=== PATIENT | female | born 1950 | race Caucasian/White ===

== ENCOUNTER → 2017-01-28 | Outpatient (CLI) | payer BC ==
[~2017-01-28] MED LIST: ACET-1256 PO; BUPR-79 PO; BUPR150T7 PO; BUTACAP7 PO; CALC500C70 PO; CYAN1DRO IM; CYM/60 PO; DIPH25CA65 PO; ELET40TA PO; FERR50TA3 PO; HYDR-4332 PO; LORA-741 PO; LURA40TA PO; LYR50 PO; MULT-513 PO; MULT-884 PO; PROP10TA7 PO; PROP20TA67 PO; SERT1TAB68 PO; SOLI10TA2 PO; TIZA2CAP PO; TOPI100T34 PO; TOPI50TA24 PO; VITAMIN D PO; VSC/10 PO; ZLF/100 PO
[2017-01-28 13:09] LABS: BASO % 1.1 %; BASO ABS # 0.04 K/uL (0-0.2); COMPLETE YES; EOS % 4.5 %; HEMATOCRIT 30.3 % (37-47); LYMPH % 37.4 %; LYMPH ABS # 1.32 K/uL (1.2-3.4); MEAN CELL VOLUME 80.8 fL (80-100); MEAN CORPUSCULAR HGB CONC 29.7 g/dl (32-36); MEAN PLATELET VOLUME 9.9 fL (7.4-10.4); MONO % 9.6 %; NEUT % 47.4 %; PLATELET COUNT 353 K/uL (130-400); RED BLOOD COUNT 3.75 M/uL (4.2-5.4); WHITE BLOOD COUNT 3.53 K/uL (4.8-10.8)
[2017-01-28 13:29] LABS: BLOOD UREA NITROGEN 20 mg/dl (7-18); CALCIUM 8.7 mg/dl (8.5-10.1); CARBON DIOXIDE 26 mmol/L (21-32); CHLORIDE 110 mmol/L (98-107); GLUCOSE 95 mg/dl (70-99); POTASSIUM 5.5 mmol/L (3.5-5.1); SODIUM 141 mmol/L (136-145)
[2017-01-28 13:31] LABS: ALB/GLOB RATIO 1.2 (0.9-2); ALKALINE PHOSPHATASE 194 U/L (45-117); ALT/SGPT 46 U/L (12-78); AST/SGOT 27 U/L (15-37); CHOLESTEROL 188 mg/dl (0-200); CHOLESTEROL/HDL RATIO 2.4; HDL CHOLESTEROL 78 mg/dl; LDL CHOLESTEROL CALCULATED 96 mg/dl; TRIGLYCERIDES 71 mg/dl (0-150); VERY LOW DENSITY LIPOPROT CALC 14 mg/dl
[2017-01-28 13:40] LABS: ESTIMATED AVERAGE GLUCOSE 126 mg/dl; HA1C FLAG Normal (Normal)
== END | disposition home or self-care (01) ==
LOC: C.LABMFLN 08:04
PROVIDERS: ATTEND Family Medicine
DX: E55.9 Vitamin D deficiency, unspecified (principal); E53.8 Deficiency of other specified B group vitamins; E11.9 Type 2 diabetes mellitus without complications; F32.9 Major depressive disorder, single episode, unspecified; E78.00 Pure hypercholesterolemia, unspecified

== ENCOUNTER → 2017-02-05 | Outpatient (CLI) | payer BC ==
[2017-02-05 18:20] LABS: HEMATOCRIT 31.6 % (37-47)
[2017-02-05 19:14] LABS: FERRITIN 5.9 ng/ml (8.0-388.0)
--- NOTE | 2017-02-13 07:13 | CODING QUERY MEDICAL NECESSITY ---
CQSUPPORTING DIAGNOSIS NEEDED A supporting diagnosis is required for the test/procedure performed on this patient in order for us to be reimbursed by the patient's insurance. Please provide a supporting diagnosis for the following test/procedure listed below next to the test name along with your signature. *If there is no additional diagnosis for this patient that would support the following test/procedure please document that below next to the test/procedure. Test(s)/Procedure(s) that require a supporting diagnosis: DOS 02/05/17 FOLIC ACID TEST Provider Signature: Date: Thank you Linda Naylor Health Information Management Once completed, please kindly fax back to [phone] For questions please call [phone]
== END | disposition home or self-care (01) ==
LOC: C.LABMFLN 10:58
PROVIDERS: ATTEND Family Medicine
DX: D64.9 Anemia, unspecified (principal)

== ENCOUNTER → 2017-03-07 | Outpatient (CLI) | payer BC ==
[2017-03-07 18:00] LABS: BASO % 0.6 %; BASO ABS # 0.04 K/uL (0-0.2); COMPLETE YES; EOS % 1.4 %; HEMATOCRIT 31.6 % (37-47); LYMPH % 25.3 %; LYMPH ABS # 1.64 K/uL (1.2-3.4); MEAN CELL VOLUME 80.8 fL (80-100); MEAN CORPUSCULAR HEMOGLOBIN 23.8 pg (25-34); MEAN CORPUSCULAR HGB CONC 29.4 g/dl (32-36); MONO % 8.8 %; NEUT % 63.9 %; PLATELET COUNT 413 K/uL (130-400); RED BLOOD COUNT 3.91 M/uL (4.2-5.4); WHITE BLOOD COUNT 6.49 K/uL (4.8-10.8)
[2017-03-07 19:34] LABS: BLOOD UREA NITROGEN 24 mg/dl (7-18); BUN/CREATININE RATIO 21.7 (10-20); CARBON DIOXIDE 25 mmol/L (21-32); CHLORIDE 108 mmol/L (98-107); GLUCOSE 113 mg/dl (70-99); POTASSIUM 4.6 mmol/L (3.5-5.1); SODIUM 139 mmol/L (136-145)
== END | disposition home or self-care (01) ==
LOC: C.LABMFLN 12:09
PROVIDERS: ATTEND Family Medicine
DX: D50.9 Iron deficiency anemia, unspecified (principal)

== ENCOUNTER → 2017-04-18 | Day surgery (SDC) | payer BC ==
[2017-04-11 14:47] VITALS: BMI 34.0
[~2017-04-18] VITALS: Ht 160 cm; Wt 87.7 kg
[~2017-04-18] MED LIST changes: -ACET-1256 PO; -BUPR150T7 PO; -BUTACAP7 PO; -CYAN1DRO IM; -DIPH25CA65 PO; -ELET40TA PO; +FENTANYL CITRATE INJ 50 MCG/1 ML 2 ML VIAL ONE; -LURA40TA PO; -LYR50 PO; -MULT-884 PO; -PROP10TA7 PO; +PROPOFOL IV EMULSION 10 MG/ML 20 ML VIAL IV ONE; -SERT1TAB68 PO; +SODIUM CHLORIDE 0.9% 500ML 500 ML IV ONE; -TIZA2CAP PO; -TOPI50TA24 PO; -VSC/10 PO; -ZLF/100 PO
[2017-04-18 12:45] VITALS: Ht 160 cm; Wt 87.7 kg
--- NOTE | 2017-04-18 12:57 | Endo History and Physical ---
History & Physical Date of Service: Apr 18, 2017. Chief Complaint: Anemia Referring Physician: Rodrigue Patel MD History of Present Illness 67 yo CF who presents for EGD and Colonoscopy secondary to anemia Past Medical History Arthritis, Anxiety, Reflux, Depression Past Surgical History Hx Cardiac Surgery: No Hx Internal Defibrillator: No Hx Pacemaker: No Hx Abdominal Surgery: Yes (ISABELLA, GASTRIC BYPASS/SHAMA, APPY, PINNICULECTOMY ) Hx Post-Op Nausea and Vomiting: No Hx Cancer Surgery: No Hx Thoracic Surgery: No Hx Orthopedic: Yes (RT/LEFT TSA, RT TKA, RT/LEFT CTR, CERVICAL DISCECTOMY, LUMBAR DISC&FUSION) Hx Urinary Tract Surgery: No Family History Colon CA Social History Smoking Status: Never Smoker Hx Substance Use: Yes (SEE MED REC) Hx Alcohol Use: Yes (RARELY) Allergies Coded Allergies: Sulfa Antibiotics (Unverified Allergy, Severe, HIVES, SOB, 04/18/17) Cefaclor (Verified Allergy, Intermediate, BAD HIVES, 04/18/17) Carbamazepine (Unverified Allergy, Unknown, RESPIRATORY DISTRESS, 04/18/17) Penicillins (Unverified Allergy, Unknown, ?HIVES, 04/18/17) PT UNSURE Pitavastatin (Unverified Allergy, Unknown, JOINT PAIN, 04/18/17) Prednisone (Verified Allergy, Unknown, TERRIBLE HEADACHE, 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 Statins (Unverified Allergy, Unknown, JOINT AND MUSCLE PAIN, 04/18/17) Hydromorphone (Verified Adverse Reaction, Unknown, ? HALLUCINATIONS, ) Current Medications Reported Home Medications Medications Dose Route/Sig Max Daily Dose Days Date Category Vesicare (Solifenacin) 10 Mg Tab 10 Mg PO QAM 04/11/17 Reported Cymbalta (Duloxetine HCl) 60 Mg Cap 1 Cap PO BID 04/11/17 Reported Wellbutrin Sr (Bupropion HCl) 150 Mg Ertab 150 Mg PO QAM 04/11/17 Reported Ativan (Lorazepam) 0.5 Mg Tab 0.5 Mg PO QID PRN 04/11/17 Reported Inderal (Propranolol HCl) 20 Mg Tab 20 Mg PO BID 6/16/17 Reported LORTAB 10-325 mg (Hydrocodone-Acetaminophen) 1 Tab Tab 1-2 Tabs PO TID PRN 04/25/15 Reported Topamax (Topiramate) 100 Mg Tab 100 Mg PO BID 04/25/15 Reported Vital Signs Weight (Kilograms): 87.73 Height (Feet): 5 Height (Inches): 3 Physical Exam General Appearance: WD/WN, no apparent distress Respiratory/Chest: Auscultation: breath sounds normal Cardiovascular: Heart Auscultation: RRR Abdomen: Bowel Sounds: normal Inspection & Palpation: soft, non-distended, no tenderness, guarding & rebound Assessment and Plan Assessment: 67 yo CF who presents for EGD and Colonoscopy secondary to anemia Plan: Proceed with EGD and Colonoscopy.
--- NOTE | 2017-04-18 14:24 | GI REPORT ---
Procedure Date: 04/18/2017 1:17 PM Procedure: Colonoscopy Indications: Iron deficiency anemia Medicines: Monitored Anesthesia Care Complications: No immediate complications. Estimated Blood Loss: Estimated blood loss: none. Procedure: Pre-Anesthesia Assessment: - Prior to the procedure, a History and Physical was performed, and patient medications and allergies were reviewed. The patient's tolerance of previous anesthesia was also reviewed. The risks and benefits of the procedure and the sedation options and risks were discussed with the patient. All questions were answered, and informed consent was obtained. Prior Anticoagulants: The patient has taken no previous anticoagulant or antiplatelet agents. ASA Grade Assessment: II - A patient with mild systemic disease. After reviewing the risks and benefits, the patient was deemed in satisfactory condition to undergo the procedure. After I obtained informed consent, the scope was passed under direct vision. Throughout the procedure, the patient's blood pressure, pulse, and oxygen saturations were monitored continuously. The scope was introduced through the anus and advanced to the terminal ileum. The colonoscopy was performed without difficulty. The patient tolerated the procedure well. The quality of the bowel preparation was good. The terminal ileum, ileocecal valve, appendiceal orifice, and rectum were photographed. Findings: A 17 mm polyp was found at the hepatic flexure. The polyp was sessile. The polyp was removed with a saline injection-lift technique using a hot snare. The polyp was removed with a piecemeal technique using a hot snare. Resection was complete, and retrieval was complete. To prevent bleeding after the polypectomy, eight hemostatic clips were successfully placed (MR conditional). There was no bleeding at the end of the procedure. Three sessile polyps were found in the sigmoid colon and in the transverse colon. The polyps were 3 to 6 mm in size. These polyps were removed with a hot snare. Resection and retrieval were complete. Multiple small-mouthed diverticula were found in the sigmoid colon. Non-bleeding internal hemorrhoids were found during retroflexion. The hemorrhoids were small. Impression: - One 17 mm polyp at the hepatic flexure, removed using injection-lift and a hot snare and removed piecemeal using a hot snare. Resected and retrieved. Clips (MR conditional) were placed. - Three 3 to 6 mm polyps in the sigmoid colon and in the transverse colon, removed with a hot snare. Resected and retrieved. - Diverticulosis in the sigmoid colon. - Non-bleeding internal hemorrhoids. Recommendation: - Resume previous diet. - Continue present medications. - Repeat colonoscopy for surveillance based on pathology results. - Return to primary care physician as previously scheduled. Saurabh Griffin, DO 04/18/2017 2:23:52 PM This report has been signed electronically. Note Initiated On: 04/18/2017 1:17 PM I attest to the content of the Intraoperative Record and orders documented therein, exceptions below
--- NOTE | 2017-04-18 14:27 | GI REPORT ---
Procedure Date: 04/18/2017 1:17 PM Procedure: Upper GI endoscopy Indications: Iron deficiency anemia Medicines: Monitored Anesthesia Care Complications: No immediate complications. Estimated Blood Loss: Estimated blood loss: none. Procedure: Pre-Anesthesia Assessment: - Prior to the procedure, a History and Physical was performed, and patient medications and allergies were reviewed. The patient's tolerance of previous anesthesia was also reviewed. The risks and benefits of the procedure and the sedation options and risks were discussed with the patient. All questions were answered, and informed consent was obtained. Prior Anticoagulants: The patient has taken no previous anticoagulant or antiplatelet agents. ASA Grade Assessment: II - A patient with mild systemic disease. After reviewing the risks and benefits, the patient was deemed in satisfactory condition to undergo the procedure. After obtaining informed consent, the endoscope was passed under direct vision. Throughout the procedure, the patient's blood pressure, pulse, and oxygen saturations were monitored continuously. The scope was introduced through the mouth, and advanced to the jejunum. The upper GI endoscopy was accomplished without difficulty. The patient tolerated the procedure well. Findings: The examined esophagus was normal. 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 The gastrojejunal anastomosis was characterized by healthy appearing mucosa and visible sutures. This was traversed. The examined jejunum was normal. Impression: - Normal esophagus. 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 - Normal examined jejunum. - No specimens collected. Recommendation: - Resume previous diet. - Continue present medications. - Return to primary care physician as previously scheduled. Saurabh Griffin, 04/18/2017 2:26:42 PM This report has been signed electronically. Note Initiated On: 04/18/2017 1:17 PM I attest to the content of the Intraoperative Record and orders documented therein, exceptions below
[2017-04-18 14:50] VITALS: BP 125/59; PULSE 79; O2SAT 97
--- NOTE | 2017-04-18 14:57 | Anesthesiology Progress Note ---
Anesthesia Post Op Note Date & Time Apr 18, 2017 at 14:56 Vital Signs Pain Intensity: 0 Vital Signs Past 12 Hours Date Time Temp Pulse Resp B/P (MAP) Pulse Ox O2 Delivery O2 Flow Rate FiO2 04/18/17 14:50 79 16 125/59 (81) 97 Room Air 04/18/17 14:35 72 16 141/68 (92) 99 Room Air 04/18/17 14:20 82 16 124/66 (85) 96 Room Air 04/18/17 12:58 36.9 77 18 135/81 (99) 100 Room Air Notes Mental Status: alert / awake / arousable, participated in evaluation Pt Amnestic to Procedure: Yes Nausea / Vomiting: adequately controlled Pain: adequately controlled Airway Patency, RR, SpO2: stable & adequate BP & HR: stable & adequate Hydration State: stable & adequate Anesthetic Complications: no major complications apparent
--- NOTE | 2017-04-18 15:11 | Discharge Instructions ---
Endoscopy Patient Instructions Date / Procedure(s) Performed Apr 18, 2017. 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 Statins (Unverified Allergy, Unknown, JOINT AND MUSCLE PAIN, 04/18/17) Hydromorphone (Verified Adverse Reaction, Unknown, ? HALLUCINATIONS, ) Discharge Date / Findings Apr 18, 2017. 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 Colonoscopy: Colon polyps, Diverticulosis, Internal hemorrhoids Medication Instructions OK to resume all medications today as prescribed Medications Dose Route/Sig Max Daily Dose Days Date Category Mvi With Minerals (Multivitamins/Minerals) Tab 1 Tab PO DAILY 04/18/17 Reported Iron (Ferrous Sulfate) (Ferrous Sulfate) 50 Mg Tab 65 PO QD 04/18/17 Reported Vesicare (Solifenacin) 10 Mg Tab 10 Mg PO QAM 04/11/17 Reported Cymbalta (Duloxetine HCl) 60 Mg Cap 1 Cap PO BID 04/11/17 Reported Wellbutrin Sr (Bupropion HCl) 150 Mg Ertab 150 Mg PO QAM 04/11/17 Reported Ativan (Lorazepam) 0.5 Mg Tab 0.5 Mg PO QID PRN 04/11/17 Reported Inderal (Propranolol HCl) 20 Mg Tab 20 Mg PO BID 04/11/17 Reported LORTAB 10-325 mg (Hydrocodone-Acetaminophen) 1 Tab Tab 1-2 Tabs PO TID PRN 04/25/15 Reported Topamax (Topiramate) 100 Mg Tab 100 Mg PO BID 04/25/15 Reported Provider Instructions Activity Restrictions - No exercising or heavy lifting for 24 hours. - Do not drink alcohol the day of the procedure. - Do not drive a car or operate machinery until the day after the procedure. - Do not make any important decisions or sign important papers in 24 hours after the procedure. Following Day: - Return to full activity which may include returning to work/school. Diet Start your diet with liquids and light foods (jello, soup, juice, toast). Then eat your usual diet if not nauseated. Treatment For Common After Affects For mild abdominal pain, bloating, or excessive gas: - Rest - Eat lightly - Lie on right side Follow-Up Information Follow-up with VINAYAK WEAVER as scheduled Anesthesia Information What You Should Know You have had a procedure that required some medicine to reduce anxiety and discomfort. This treatment is called moderate sedation. After receiving the treatment, you may be sleepy, but you will be able to breathe on your own. The effects of the treatment may last for several hours. Follow these instructions along with Activity/Diet recommendations noted above: * Do NOT do anything where dizziness or clumsiness would be dangerous. * Rest quietly at home today, then you can be up and about tomorrow. * Have a responsible person stay with you the rest of today. * You may have had an I.V. today. If so, you may take the dressing off later today. Recommendations Call your doctor if: * Trouble breathing * Continuous vomiting for more than 24 hours * Temperature above 101 degrees * Severe abdominal pain or bloating * Pain not relieved by pain medicine ordered * There is increased drainage or redness from any incision * A large amount of rectal bleeding greater than 2-3 tablespoons. (If you had a polyp/s removed or have hemorrhoids, a small amount of blood - from the rectum is to be expected.) * You have any unanswered questions or concerns. IN THE EVENT OF A SERIOUS EMERGENCY, GO TO THE NEAREST EMERGENCY ROOM Your discharge instructions were prepared by provider Saurabh Griffin. Patient Instructions Signature Page Avelina Sellers Patient (or Guardian) Signature/Date: I have read and understand the instructions given to me by my caregivers. Caregiver/RN/Doctor Signature/Date: The above-named patient and/or guardian has received patient instructions on this date. + Original Patient Signature Page (only) stays with chart. Please make copy for patient.
== END | disposition home or self-care (01) ==
LOC: C.GI 12:14
PROVIDERS: ATTEND Internal Medicine
DX: D50.9 Iron deficiency anemia, unspecified (principal); D12.3 Benign neoplasm of transverse colon; D12.5 Benign neoplasm of sigmoid colon; K64.8 Other hemorrhoids; K57.30 Diverticulosis of large intestine without perforation or abscess without bleeding; F41.9 Anxiety disorder, unspecified; K21.9 Gastro-esophageal reflux disease without esophagitis; F32.9 Major depressive disorder, single episode, unspecified; Z98.84 Bariatric surgery status; Z98.890 Other specified postprocedural states; Z98.1 Arthrodesis status; Z79.899 Other long term (current) drug therapy

== ENCOUNTER → 2017-05-16 | Outpatient (CLI) | payer BC ==
[~2017-05-16] MED LIST changes: -FENTANYL CITRATE INJ 50 MCG/1 ML 2 ML VIAL ONE; -PROPOFOL IV EMULSION 10 MG/ML 20 ML VIAL IV ONE; -SODIUM CHLORIDE 0.9% 500ML 500 ML IV ONE; -VITAMIN D PO
[2017-05-16 13:19] LABS: HEMATOCRIT 31.4 % (37-47)
== END | disposition home or self-care (01) ==
LOC: C.LABMFLN 08:56
PROVIDERS: ATTEND Family Medicine
DX: D64.9 Anemia, unspecified (principal); E11.9 Type 2 diabetes mellitus without complications

== ENCOUNTER → 2017-06-06 | Outpatient (CLI) | payer BC | END | disposition home or self-care (01) | LOC: C.LABMFLN 10:16 | PROVIDERS: ATTEND Student in an Organized Health Care Education/Training Program | DX: Z79.899 Other long term (current) drug therapy (principal) ==

== ENCOUNTER → 2017-06-16 | Outpatient (CLI) | payer BC | END | disposition home or self-care (01) | LOC: C.MAMM 15:30 | PROVIDERS: ATTEND Family Medicine | DX: M85.88 Other specified disorders of bone density and structure, other site (principal); M85.851 Other specified disorders of bone density and structure, right thigh; M85.852 Other specified disorders of bone density and structure, left thigh; Z78.0 Asymptomatic menopausal state ==

== ENCOUNTER → 2017-06-24 | Outpatient (CLI) | payer BC ==
[2017-06-24 18:10] LABS: ALT/SGPT 23 U/L (12-78); AST/SGOT 18 U/L (15-37); BLOOD UREA NITROGEN 23 mg/dl (7-18); BUN/CREATININE RATIO 20.7 (10-20); CALCIUM 9.1 mg/dl (8.5-10.1); CARBON DIOXIDE 30 mmol/L (21-32); CHLORIDE 107 mmol/L (98-107); GLUCOSE 97 mg/dl (70-99); POTASSIUM 4.7 mmol/L (3.5-5.1); SODIUM 141 mmol/L (136-145); TRIGLYCERIDES 86 mg/dl (0-150); VERY LOW DENSITY LIPOPROT CALC 17 mg/dl
[2017-06-24 18:19] LABS: ALB/GLOB RATIO 1.2 (0.9-2); ALKALINE PHOSPHATASE 157 U/L (45-117); CHOLESTEROL 216 mg/dl (0-200); CHOLESTEROL/HDL RATIO 2.7; HDL CHOLESTEROL 81 mg/dl; LDL CHOLESTEROL CALCULATED 118 mg/dl; THYROID STIMULATING HORMONE 0.876 uIu/ml (0.300-4.500); TOTAL IRON BINDING CAPACITY 482 mcg/dl (250-450)
[2017-06-24 18:20] LABS: BASO % 0.8 %; BASO ABS # 0.05 K/uL (0-0.2); COMPLETE YES; EOS % 5.7 %; HEMATOCRIT 34.7 % (37-47); IG% 0.2 %; LYMPH % 27.9 %; LYMPH ABS # 1.75 K/uL (1.2-3.4); MEAN CELL VOLUME 85.9 fL (80-100); MEAN CORPUSCULAR HEMOGLOBIN 26.5 pg (25-34); MEAN CORPUSCULAR HGB CONC 30.8 g/dl (32-36); MEAN PLATELET VOLUME 9.4 fL (7.4-10.4); MONO % 7.3 %; NEUT % 58.1 %; PLATELET COUNT 370 K/uL (130-400); RED BLOOD COUNT 4.04 M/uL (4.2-5.4); WHITE BLOOD COUNT 6.28 K/uL (4.8-10.8)
[2017-06-25 07:51] LABS: ESTIMATED AVERAGE GLUCOSE 126 mg/dl; HA1C FLAG Normal (Normal)
== END | disposition home or self-care (01) ==
LOC: C.LABMFLN 15:25
PROVIDERS: ATTEND Family Medicine
DX: E55.9 Vitamin D deficiency, unspecified (principal); E53.8 Deficiency of other specified B group vitamins; E11.9 Type 2 diabetes mellitus without complications; E78.00 Pure hypercholesterolemia, unspecified; D50.9 Iron deficiency anemia, unspecified

== ENCOUNTER → 2017-10-31 | Day surgery (SDC) | payer BC, OTHER ==
[2017-10-06 10:32] VITALS: Ht 160 cm; Wt 91.8 kg
[~2017-10-31] VITALS: Ht 160 cm; Wt 91.8 kg
[~2017-10-31] MED LIST changes: +CHOL2000 PO; +FERR324T4 PO; -FERR50TA3 PO; +FRCT/ PO; -HYDR-4332 PO; +HYDR-4380 PO; +LIDOCAINE HCL 2% 2 ML VIAL (20MG/ML) ONE; +LYR50 PO; +MIDAZOLAM HCL 1 MG/ML 2ML VIAL ONE; +ONDANSETRON INJ 2 MG/ML 2 ML VIAL ONE; +PROPOFOL IV EMULSION 10 MG/ML 20 ML VIAL IV ONE; -TOPI100T34 PO
--- NOTE | 2017-10-31 08:48 | Endo History and Physical ---
History & Physical Date of Service: Oct 31, 2017. Chief Complaint: History of polyps Referring Physician: Dr. Rodrigue Patel History of Present Illness 67 yo CF who presents for colonoscopy secondary to history of colon polyps. Past Medical History Arthritis, Anxiety, Reflux, Depression Past Surgical History Hx Cardiac Surgery: No Hx Internal Defibrillator: No Hx Pacemaker: No Hx Abdominal Surgery: Yes (ISABELLA, GASTRIC BYPASS/SHAMA, APPY, PANNICULECTOMY ) Hx of Implantable Prosthesis: No Hx Post-Op Nausea and Vomiting: No Hx Cancer Surgery: No Hx Thoracic Surgery: No Hx Orthopedic: Yes (RT/LEFT TSA, RT TKA, RT/LEFT CTR, CERVICAL DISCECTOMY, LUMBAR DISC&FUSION) Hx Urinary Tract Surgery: No Family History Colon CA Social History Smoking Status: Never Smoker Hx Substance Use: Yes (SEE MED REC) Hx Alcohol Use: Yes (RARELY) Allergies Coded Allergies: Sulfa Antibiotics (Verified Allergy, Severe, HIVES, SOB, 10/31/17) Cefaclor (Verified Allergy, Intermediate, BAD HIVES, 10/06/17) Carbamazepine (Verified Allergy, Unknown, RESPIRATORY DISTRESS, 10/31/17) Penicillins (Verified Allergy, Unknown, ?HIVES, 10/31/17) PT UNSURE Pitavastatin (Verified Allergy, Unknown, JOINT PAIN, 10/31/17) Prednisone (Verified Allergy, Unknown, TERRIBLE HEADACHE, 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 Statins (Verified Allergy, Unknown, JOINT AND MUSCLE PAIN, 10/31/17) Current Medications Reported Home Medications Medications Dose Route/Sig Max Daily Dose Days Date Category Dose Instructions Fioricet (Acetaminophen/Butalbital/Caffeine) 1 Ea Tab 1 Tab PO DAILY PRN 10/31/17 Reported Vitamin D3 (Cholecalciferol) 2,000 Unit Cap 1 Cap PO BID 10/06/17 Reported Lyrica (Pregabalin) 50 Mg Cap 50 Mg PO BID 10/06/17 Reported Hydrocodone/Acetaminophen (Hydrocodone-Acetaminophen) 1 Tab Tab 1-2 Tab PO QID PRN 10/06/17 Reported Ferrous Sulfate 324 Mg Tab 1 Tab PO BID 10/06/17 Reported Os-Jackson 500 Plus D (Calcium/Vitamin D) Tab 2 Tabs PO DAILY 08/01/17 Reported Mvi With Minerals (Multivitamins/Minerals) Tab 1 Tab PO DAILY 04/18/17 Reported Vesicare (Solifenacin) 10 Mg Tab 10 Mg PO QAM 04/11/17 Reported Cymbalta (Duloxetine HCl) 60 Mg Cap 1 Dose PO BID 04/11/17 Reported TAKES 1.5 TAB IN AM TAKES 1 TAB IN PM Wellbutrin Sr (Bupropion HCl) 150 Mg Ertab 150 Mg PO QAM 04/11/17 Reported Ativan (Lorazepam) 0.5 Mg Tab 0.5 Mg PO QID PRN 04/11/17 Reported Inderal (Propranolol HCl) 20 Mg Tab 20 Mg PO BID 04/11/17 Reported Vital Signs Weight (Kilograms): 91.82 Height (Feet): 5 Height (Inches): 3 Date Time Temp Pulse Resp B/P (MAP) Pulse Ox O2 Delivery O2 Flow Rate FiO2 10/31/17 08:29 36.8 71 18 180/73 (108) 98 Room Air Physical Exam General Appearance: WD/WN, no apparent distress Respiratory/Chest: Auscultation: breath sounds normal Cardiovascular: Heart Auscultation: RRR Abdomen: Bowel Sounds: normal Inspection & Palpation: soft, non-distended, no tenderness, guarding & rebound Assessment and Plan Assessment: 67 yo CF who presents for colonoscopy secondary to history of colon polyps. Plan: Proceed with colonoscopy.
--- NOTE | 2017-10-31 10:06 | Anesthesiology Progress Note ---
Anesthesia Post Op Note Date & Time Oct 31, 2017 at 10:06 Vital Signs Pain Intensity: 0 Vital Signs Past 12 Hours Date Time Temp Pulse Resp B/P (MAP) Pulse Ox O2 Delivery O2 Flow Rate FiO2 10/31/17 09:56 68 18 125/76 (92) 95 Room Air 10/31/17 08:29 36.8 71 18 180/73 (108) 98 Room Air Notes Mental Status: alert / awake / arousable, participated in evaluation Pt Amnestic to Procedure: Yes Nausea / Vomiting: adequately controlled Pain: adequately controlled Airway Patency, RR, SpO2: stable & adequate BP & HR: stable & adequate Hydration State: stable & adequate Anesthetic Complications: no major complications apparent
--- NOTE | 2017-10-31 10:09 | GI REPORT ---
Procedure Date: 10/31/2017 9:13 AM Procedure: Colonoscopy Indications: High risk colon cancer surveillance: Personal history of colonic polyps Medicines: Monitored Anesthesia Care Complications: No immediate complications. Estimated Blood Loss: Estimated blood loss: none. Procedure: Pre-Anesthesia Assessment: - Prior to the procedure, a History and Physical was performed, and patient medications and allergies were reviewed. The patient's tolerance of previous anesthesia was also reviewed. The risks and benefits of the procedure and the sedation options and risks were discussed with the patient. All questions were answered, and informed consent was obtained. Prior Anticoagulants: The patient has taken no previous anticoagulant or antiplatelet agents. ASA Grade Assessment: III - A patient with severe systemic disease. After reviewing the risks and benefits, the patient was deemed in satisfactory condition to undergo the procedure. After I obtained informed consent, the scope was passed under direct vision. Throughout the procedure, the patient's blood pressure, pulse, and oxygen saturations were monitored continuously. The scope was introduced through the anus and advanced to the terminal ileum. The colonoscopy was performed without difficulty. The patient tolerated the procedure well. The quality of the bowel preparation was good. The terminal ileum, ileocecal valve, appendiceal orifice, and rectum were photographed. Findings: A 6 mm polypoid lesion was found at the hepatic flexure, at site of prior polypectomy, with retained endoclip from prior colonoscopy. The lesion was sessile. No bleeding was present. The polyp was removed with a hot snare. Resection and retrieval were complete. A 4 mm polyp was found in the sigmoid colon. The polyp was sessile. The polyp was removed with a cold snare. Resection and retrieval were complete. Multiple small-mouthed diverticula were found in the sigmoid colon. Non-bleeding internal hemorrhoids were found during retroflexion. The hemorrhoids were small. Impression: - Likely benign polypoid lesion at the hepatic flexure. Complete removal was accomplished. - One 4 mm polyp in the sigmoid colon, removed with a cold snare. Resected and retrieved. - Diverticulosis in the sigmoid colon. - Non-bleeding internal hemorrhoids. Recommendation: - Resume previous diet. - Continue present medications. - Repeat colonoscopy for surveillance based on pathology results. - Return to primary care physician as previously scheduled. Saurabh Griffin DO 10/31/2017 10:09:11 AM This report has been signed electronically. Note Initiated On: 10/31/2017 9:13 AM I attest to the content of the Intraoperative Record and orders documented therein, exceptions below
[2017-10-31 10:27] VITALS: BP 133/95; PULSE 68; O2SAT 100
--- NOTE | 2017-10-31 10:29 | Discharge Instructions ---
Endoscopy Patient Instructions Date / Procedure(s) Performed Oct 31, 2017. 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 Statins (Verified Allergy, Unknown, JOINT AND MUSCLE PAIN, 10/31/17) Discharge Date / Findings Oct 31, 2017. Colon polyps Diverticulosis Internal hemorrhoids Medication Instructions OK to resume all medications today as prescribed Reported Home Medications Medications Dose Route/Sig Max Daily Dose Days Date Category Dose Instructions Fioricet (Acetaminophen/Butalbital/Caffeine) 1 Ea Tab 1 Tab PO DAILY PRN 10/31/17 Reported Vitamin D3 (Cholecalciferol) 2,000 Unit Cap 1 Cap PO BID 10/06/17 Reported Lyrica (Pregabalin) 50 Mg Cap 50 Mg PO BID 10/06/17 Reported Hydrocodone/Acetaminophen (Hydrocodone-Acetaminophen) 1 Tab Tab 1-2 Tab PO QID PRN 10/06/17 Reported Ferrous Sulfate 324 Mg Tab 1 Tab PO BID 10/06/17 Reported Os-Jackson 500 Plus D (Calcium/Vitamin D) Tab 2 Tabs PO DAILY 08/01/17 Reported Mvi With Minerals (Multivitamins/Minerals) Tab 1 Tab PO DAILY 04/18/17 Reported Vesicare (Solifenacin) 10 Mg Tab 10 Mg PO QAM 04/11/17 Reported Cymbalta (Duloxetine HCl) 60 Mg Cap 1 Dose PO BID 04/11/17 Reported TAKES 1.5 TAB IN AM TAKES 1 TAB IN PM Wellbutrin Sr (Bupropion HCl) 150 Mg Ertab 150 Mg PO QAM 04/11/17 Reported Ativan (Lorazepam) 0.5 Mg Tab 0.5 Mg PO QID PRN 04/11/17 Reported Inderal (Propranolol HCl) 20 Mg Tab 20 Mg PO BID 04/11/17 Reported Provider Instructions Activity Restrictions - No exercising or heavy lifting for 24 hours. - Do not drink alcohol the day of the procedure. - Do not drive a car or operate machinery until the day after the procedure. - Do not make any important decisions or sign important papers in 24 hours after the procedure. Following Day: - Return to full activity which may include returning to work/school. Diet Start your diet with liquids and light foods (jello, soup, juice, toast). Then eat your usual diet if not nauseated. Treatment For Common After Affects For mild abdominal pain, bloating, or excessive gas: - Rest - Eat lightly - Lie on right side Follow-Up Information Follow-up with Dr. Rodrigue Patel as scheduled Anesthesia Information What You Should Know You have had a procedure that required some medicine to reduce anxiety and discomfort. This treatment is called moderate sedation. After receiving the treatment, you may be sleepy, but you will be able to breathe on your own. The effects of the treatment may last for several hours. Follow these instructions along with Activity/Diet recommendations noted above: * Do NOT do anything where dizziness or clumsiness would be dangerous. * Rest quietly at home today, then you can be up and about tomorrow. * Have a responsible person stay with you the rest of today. * You may have had an I.V. today. If so, you may take the dressing off later today. Recommendations Call your doctor if: * Trouble breathing * Continuous vomiting for more than 24 hours * Temperature above 101 degrees * Severe abdominal pain or bloating * Pain not relieved by pain medicine ordered * There is increased drainage or redness from any incision * A large amount of rectal bleeding greater than 2-3 tablespoons. (If you had a polyp/s removed or have hemorrhoids, a small amount of blood - from the rectum is to be expected.) * You have any unanswered questions or concerns. IN THE EVENT OF A SERIOUS EMERGENCY, GO TO THE NEAREST EMERGENCY ROOM Your discharge instructions were prepared by provider Saurabh Griffin. Patient Instructions Signature Page Avelina Sellers Patient (or Guardian) Signature/Date: I have read and understand the instructions given to me by my caregivers. Caregiver/RN/Doctor Signature/Date: The above-named patient and/or guardian has received patient instructions on this date. + Original Patient Signature Page (only) stays with chart. Please make copy for patient.
== END | disposition home or self-care (01) ==
LOC: C.GI 07:56
PROVIDERS: ATTEND Internal Medicine
DX: Z12.11 Encounter for screening for malignant neoplasm of colon (principal); K63.5 Polyp of colon; D12.5 Benign neoplasm of sigmoid colon; Z86.010 Personal history of colon polyps; K64.8 Other hemorrhoids; K57.30 Diverticulosis of large intestine without perforation or abscess without bleeding; M19.90 Unspecified osteoarthritis, unspecified site; F41.9 Anxiety disorder, unspecified; K21.9 Gastro-esophageal reflux disease without esophagitis; F32.9 Major depressive disorder, single episode, unspecified; Z90.710 Acquired absence of both cervix and uterus; Z98.84 Bariatric surgery status; Z90.49 Acquired absence of other specified parts of digestive tract; Z90.89 Acquired absence of other organs; Z96.651 Presence of right artificial knee joint; Z98.1 Arthrodesis status; Z80.0 Family history of malignant neoplasm of digestive organs; Z88.0 Allergy status to penicillin; E11.9 Type 2 diabetes mellitus without complications

== ENCOUNTER → 2017-11-14 | Outpatient (CLI) | payer OTHER ==
[~2017-11-14] MED LIST changes: -LIDOCAINE HCL 2% 2 ML VIAL (20MG/ML) ONE; -MIDAZOLAM HCL 1 MG/ML 2ML VIAL ONE; -ONDANSETRON INJ 2 MG/ML 2 ML VIAL ONE; -PROPOFOL IV EMULSION 10 MG/ML 20 ML VIAL IV ONE
[2017-11-14 18:00] LABS: BASO % 0.6 %; BASO ABS # 0.03 K/uL (0-0.2); EOS % 6.2 %; EOS ABS # 0.29 K/uL (0-0.5); HEMATOCRIT 38.2 % (37-47); HEMOGLOBIN 12.3 g/dL (12.0-16.0); LYMPH % 33.5 %; LYMPH ABS # 1.56 K/uL (1.2-3.4); MEAN CELL VOLUME 97.7 fL (80-100); MEAN CORPUSCULAR HEMOGLOBIN 31.5 pg (25-34); MEAN CORPUSCULAR HGB CONC 32.2 g/dl (32-36); MEAN PLATELET VOLUME 9.7 fL (7.4-10.4); MONO % 7.7 %; MONO ABS # 0.36 K/uL (0.11-0.59); NEUT ABS # 2.42 K/uL (1.4-6.5); PLATELET COUNT 274 K/uL (130-400); RED CELL DISTRIBUTION WIDTH CV 13.9 % (11.5-14.5); RED CELL DISTRIBUTION WIDTH SD 49.3 fL (36.4-46.3); WHITE BLOOD COUNT 4.66 K/uL (4.8-10.8)
[2017-11-14 18:22] LABS: ALBUMIN 3.6 gm/dl (3.4-5.0); ALT/SGPT 53 U/L (12-78); BLOOD UREA NITROGEN 19 mg/dl (7-18); CARBON DIOXIDE 27 mmol/L (21-32); CREATININE 0.77 mg/dl (0.60-1.20); GLUCOSE 94 mg/dl (70-99); POTASSIUM 4.5 mmol/L (3.5-5.1); SODIUM 138 mmol/L (136-145)
[2017-11-14 18:31] LABS: ALKALINE PHOSPHATASE 176 U/L (45-117); AST/SGOT 56 U/L (15-37); TOTAL PROTEIN 6.5 gm/dl (6.4-8.2); TRANSFERRIN 295 mg/dl (200-360)
[2017-11-15 07:15] LABS: HEMOGLOBIN A1C 5.6 % (4.5-5.6)
== END | disposition home or self-care (01) ==
LOC: C.LABMFLN 11:32
PROVIDERS: ATTEND Family Medicine
DX: Z00.00 Encounter for general adult medical examination without abnormal findings (principal); E53.8 Deficiency of other specified B group vitamins; E11.9 Type 2 diabetes mellitus without complications; G60.9 Hereditary and idiopathic neuropathy, unspecified; E78.00 Pure hypercholesterolemia, unspecified; D50.9 Iron deficiency anemia, unspecified; K21.9 Gastro-esophageal reflux disease without esophagitis; K57.90 Diverticulosis of intestine, part unspecified, without perforation or abscess without bleeding; E55.9 Vitamin D deficiency, unspecified; M85.80 Other specified disorders of bone density and structure, unspecified site

== ENCOUNTER 2019-05-28 08:31 | Inpatient (IN) ==
--- NOTE | 2019-05-25 08:29 | PAT Medication Instructions ---
Medication Instructions Date of Service May 25, 2019 Home Medications bisacodyl 10 mg GA NEEDED bupropion HCl [Wellbutrin SR] 100 mg PO BID buspirone 10 mg PO BID calcium carbonate-vitamin D3 [Calcium 600 + D(3)] 1 cap PO DAILY cyanocobalamin (vitamin B-12) 1,000 mcg IM MONTHLY docusate sodium [Colace] 100 mg PO BID duloxetine [Cymbalta] 90 mg PO DAILY eletriptan [Relpax] 40 mg PO DAILY NEEDED ergocalciferol (vitamin D2) [Vitamin D2] 50,000 unit PO WK ferrous sulfate [iron] 325 mg PO DAILY fexofenadine 180 mg PO DAILY NEEDED furosemide [Lasix] 40 mg PO DAILY hydrocodone-acetaminophen 1 tab PO Q6H NEEDED lorazepam 0.5 mg PO QID NEEDED magnesium hydroxide [Milk of Magnesia] 30 ml PO DAILY NEEDED multivitamin 1 tab PO DAILY oxycodone 15 mg PO Q3H NEEDED pregabalin [Lyrica] 50 mg PO BID sodium phosphates [Enema Disposable] 197 ml GA Q3D NEEDED solifenacin [Vesicare] 5 mg PO DAILY Continue as directed cyanocobalamin (vitamin B-12) 1,000 mcg IM MONTHLY ergocalciferol (vitamin D2) [Vitamin D2] 50,000 unit PO WK DO NOT take the morning of surgery bisacodyl 10 mg GA NEEDED calcium carbonate-vitamin D3 [Calcium 600 + D(3)] 1 cap PO DAILY docusate sodium [Colace] 100 mg PO BID eletriptan [Relpax] 40 mg PO DAILY NEEDED ferrous sulfate [iron] 325 mg PO DAILY fexofenadine 180 mg PO DAILY NEEDED furosemide [Lasix] 40 mg PO DAILY magnesium hydroxide [Milk of Magnesia] 30 ml PO DAILY NEEDED multivitamin 1 tab PO DAILY sodium phosphates [Enema Disposable] 197 ml GA Q3D NEEDED Take morning of surgery With a small sip of water, OTHERWISE NOTHING TO EAT OR DRINK AFTER MIDNIGHT: bupropion HCl [Wellbutrin SR] 100 mg PO BID buspirone 10 mg PO BID duloxetine [Cymbalta] 90 mg PO DAILY pregabalin [Lyrica] 50 mg PO BID solifenacin [Vesicare] 5 mg PO DAILY hydrocodone-acetaminophen 1 tab PO Q6H NEEDED (if needed; stop 4 hours prior to surgery) lorazepam 0.5 mg PO QID NEEDED (if needed; stop 4 hours prior to surgery) oxycodone 15 mg PO Q3H NEEDED (if needed; stop 4 hours prior to surgery) Take evening before surgery bupropion HCl [Wellbutrin SR] 100 mg PO BID buspirone 10 mg PO BID docusate sodium [Colace] 100 mg PO BID eletriptan [Relpax] 40 mg PO DAILY NEEDED pregabalin [Lyrica] 50 mg PO BID hydrocodone-acetaminophen 1 tab PO Q6H NEEDED (if needed) lorazepam 0.5 mg PO QID NEEDED (if needed) oxycodone 15 mg PO Q3H NEEDED (if needed) Other Notes If you have any questions please call us at [phone] or [phone] or [phone] or [phone]
--- NOTE | 2019-05-27 08:55 | Anesthesiology Consultation ---
Date of Service May 27, 2019 Assessment & Plan (1) Encounter for pre-operative examination: EKG tracing not received from [facility] (report only). If tracing needed, update AM DOS at anesthesia discretion. Chart Review Chart Review: Acceptable Risk for Surgery and Patient NOT seen in Pre Admission Testing History Surgery Operation Date: 05/28/19 11:00 Proposed Procedures p Left Humerus Open Reduction Internal Fixation, - Lee Tai MD s Radial Nerve Exploration - Lee Tai MD Height/Weight Height: 5 ft 3 in Weight: 105.868 kg Allergies Allergy/AdvReac Type Severity Reaction Status Date / Time cefaclor Allergy Severe Hives Verified 05/25/19 07:51 Sulfa (Sulfonamide Allergy Severe HIVES, SOB Verified 05/25/19 07:51 Antibiotics) carbamazepine Allergy Unknown RESPIRATORY Verified 05/25/19 07:51 DISTRESS lovastatin Allergy Unknown Unknown Verified 05/25/19 07:51 Penicillins Allergy Unknown ?HIVES Verified 05/25/19 07:51 pravastatin Allergy Unknown Unknown Verified 05/25/19 07:51 [id number] Reductase Allergy Unknown JOINT AND Verified 05/25/19 07:51 Inhibitor MUSCLE PAIN prednisone AdvReac Unknown TERRIBLE Verified 05/25/19 07:51 HEADACHE, 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 Medications Home Medications Medication Instructions Recorded Confirmed Last Taken bisacodyl 10 mg SC UD PRN 05/25/19 05/25/19 Unknown bupropion HCl [Wellbutrin SR] 100 mg PO BID 05/25/19 05/25/19 Unknown buspirone 10 mg PO BID 05/25/19 05/25/19 Unknown calcium carbonate-vitamin D3 1 cap PO DAILY 05/25/19 05/25/19 Unknown [Calcium 600 + D(3)] cyanocobalamin (vitamin B-12) 1,000 mcg IM MONTHLY 05/25/19 05/25/19 Unknown docusate sodium [Colace] 100 mg PO BID 05/25/19 05/25/19 Unknown duloxetine [Cymbalta] 90 mg PO DAILY 05/25/19 05/25/19 Unknown eletriptan [Relpax] 40 mg PO DAILY PRN 05/25/19 05/25/19 Unknown ergocalciferol (vitamin D2) 50,000 unit PO WK 05/25/19 05/25/19 Unknown [Vitamin D2] ferrous sulfate [iron] 325 mg PO DAILY 05/25/19 05/25/19 Unknown fexofenadine 180 mg PO DAILY PRN 05/25/19 05/25/19 Unknown furosemide [Lasix] 40 mg PO DAILY 05/25/19 05/25/19 Unknown hydrocodone-acetaminophen 1 tab PO Q6H PRN 05/25/19 05/25/19 Unknown lorazepam 0.5 mg PO QID PRN 05/25/19 05/25/19 Unknown magnesium hydroxide [Milk of 30 ml PO DAILY PRN 05/25/19 05/25/19 Unknown Magnesia] multivitamin 1 tab PO DAILY 05/25/19 05/25/19 Unknown oxycodone 15 mg PO Q3H PRN 05/25/19 05/25/19 Unknown pregabalin [Lyrica] 50 mg PO BID 05/25/19 05/25/19 Unknown sodium phosphates [Enema 197 ml SC Q3D PRN 05/25/19 05/25/19 Unknown Disposable] solifenacin [Vesicare] 5 mg PO DAILY 05/25/19 05/25/19 Unknown Past Medical History Medical History Morbid obesity Anxiety Diabetes Depressive disorder Fibromyalgia GERD (gastroesophageal reflux disease) Hypercholesterolemia Lumbar stenosis with neurogenic claudication Migraine, chronic, without aura Pain, joint, multiple sites Vitamin D deficiency Anemia Degenerative disc disease Displaced fracture of distal end of left humerus Diverticular disease Osteoarthritis Postgastric surgery syndromes Past Family History Family History Other Family hx of colon cancer Past Surgical History Surgical History H/O cervical spine surgery (Resolved) NECK SPINE FUSION (CERV, BELOW C2) H/O gastric bypass (Resolved) History of appendectomy (Resolved) History of cataract surgery (Resolved) History of cholecystectomy (Resolved) History of colonoscopy (Resolved) History of esophagogastroduodenoscopy (EGD) (Resolved) History of hysterectomy (Resolved) History of knee replacement (Resolved) Right History of lumbar surgery (Resolved) Fusion Status post panniculectomy (Resolved) Difficult airway for intubation POSSIBLE -- H/O GLIDESCOPE INTUBATION 2012 [facility]. History of total shoulder replacement Past Anesthesia History Difficult Airway (h/o Glidescope) S/P L reverse total shoulder arthroplasty 2012 [facility] -- IV induction, #7.5 ETT placed via Glidescope. 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 Chest X-Ray Date: 05/26/19 Findings: + NAD Echocardiogram Date: 02/14/17 EF: 68% The left ventricular cavity size is normal. The LV wall thickness is mildly increased (concentric). There is no left ventricular mural thrombus. The LV wall motion is normal. Grade 1-2 diastolic dysfunction. Aortic valve sclerosis without stenosis. Mild to moderate AR.
[2019-05-27 14:26] LABS: Basophils # (auto) 0.04 K/uL (0-0.2); Basophils % (auto) 1.1 %; Eosinophils # (auto) 0.26 K/uL (0-0.5); Eosinophils % (auto) 7.1 %; Hematocrit (blood only) 35.5 % (37-47); Hemoglobin 11.1 g/dL (12.0-16.0); Lymphocytes # (auto) 0.69 K/uL (1.2-3.4); Mean Corpuscular Hgb Conc 31.3 g/dL (32-36); Mean Corpuscular Volume 91.5 fL (80-100); Monocytes # (auto) 0.36 K/uL (0.11-0.59); Monocytes % (auto) 9.9 %; Neutrophils # (auto) 2.29 K/uL (1.4-6.5); Neutrophils % (auto) 62.9 %; Platelet Count 332 K/uL (130-400); RDW Coefficient of Variation 15.3 % (11.5-14.5); RDW Standard Deviation 51.7 fL (36.4-46.3); Red Blood Count 3.88 M/uL (4.2-5.4); White Blood Count 3.64 K/uL (4.8-10.8)
[2019-05-27 14:40] LABS: Appearance Urine Clear (Clear); Bilirubin Urine Negative (Negative); Blood Urine Negative (Negative); Color Urine Yellow; Glucose Urine UA Negative (Negative); Ketones Urine Negative (Negative); Leukocyte Esterase Urine Negative (Negative); Nitrite Urine Negative (Negative); Protein Urine Negative (Negative); Specific Gravity Urine 1.013 (1.000-1.030); Urobilinogen Urine Negative (Negative); pH Urine 6.5 (4.5-7.5)
[2019-05-27 14:41] LABS: Calcium 8.8 mg/dl (8.5-10.1); Creatinine Clr Calc Pharmacy 54.5 ml/min; Est GFR (African American) 56.6; Est GFR (Non-African American) 48.9; Potassium 3.5 mmol/L (3.5-5.1)
--- NOTE | 2019-05-27 17:05 | History and Physical Report ---
DATE OF ADMISSION: 05/28/2019 CHIEF COMPLAINT: Left shoulder injury. HISTORY OF PRESENT ILLNESS: This is a 69-year-old female patient of Dr. Tai'severo complaining of a left shoulder injury at home. She is status post a fall recently. The patient had a reverse total shoulder arthroplasty in 2012 and she has recently sustained a humeral shaft fracture status post a fall at home. At this point in time, patient wished to proceed with a left humerus ORIF and radial nerve exploration. PAST MEDICAL HISTORY: Heart murmur, hypertension, anxiety, peripheral neuropathy, anemia, osteoarthritis, spine problems, neck problems, and obesity. SOCIAL HISTORY: Nonsmoker, nondrinker. PAST SURGICAL HISTORY: Gastric bypass, hysterectomy, back surgery x3, cervical spine surgery, right total knee replacement, right total shoulder replacement and left total shoulder replacement. FAMILY HISTORY: Noncontributory. REVIEW OF SYSTEMS: Left shoulder pain status post a fall recently in the left upper extremity. Otherwise, denies any shortness of breath, chest pain, nausea, vomiting or any other joint complaints. MEDICATIONS: 1. Colace 100 mg twice daily. 2. Oxycodone 15 mg every 3 hours as needed. 3. Lasix 40 mg daily. 4. Hydrocodone 10 mg every 6 hours as needed. 5. Buspirone 10 mg twice daily as needed. 6. Lyrica 50 mg twice daily as needed. 7. Cymbalta 30 mg 3 capsules daily. 8. Biscolax 10 mg suppository as needed. 9. Milk of magnesia 400 mg suspension as needed. 10. Fleet enema as needed. 11. Fexofenadine 180 mg daily as needed for allergies. 12. Iron 325 mg daily. 13. Wellbutrin 100 mg every 12 hours daily. 14. VESIcare 5 mg daily. 15. Multivitamin daily. 16. Relpax 40 mg tablets as needed daily. 17. Calcium 600 plus D daily. 18. Vitamin D2 daily. 19. Lorazepam 0.5 mg 4 times daily for anxiety as needed. 20. Vitamin B12 1000 mcg injection monthly. 21. Voltaren 1% topical gel 4 times daily to affected area. ALLERGIES: CIPRO AND SULFA. PHYSICAL EXAMINATION: GENERAL: Well-developed, well-nourished 69-year-old female in no acute distress. She is alert and oriented x3 and pleasant. HEENT: Normocephalic, atraumatic. Extraocular motions are intact. Pupils are equal and reactive to light. HEART: Regular rate and rhythm with a 2/6 murmur appreciated. LUNGS: Clear. ABDOMEN: Soft, nontender, bowel sounds present. LEFT HUMERUS: She has decreased radial nerve activities. She cannot extend or move her fingers. She currently has a splint that is well-fitting and intact. She is alert and oriented x3. DIAGNOSES: Left humerus fracture of the shaft, status post a fall at home. She has a history of heart murmur, hypertension, anxiety, peripheral neuropathy, anemia, osteoarthritis, spine problems, neck problems, and obesity. PLAN: The patient was advised of her diagnosis. Indications, risks, benefits, postop course have all been reviewed. The patient wished to proceed with a left humerus open reduction internal fixation and radial nerve exploration. Necessary consent forms, preoperative testing and clearances will be obtained.
[~2019-05-28 08:31] MED LIST changes: +BUPIVACAINE/EPINEPHRINE 0.25% 1:200,000 30 ML VIAL ONE; -BUPR-79 PO; -CALC500C70 PO; +CEFAZOLIN 2000MG 2,000 MG/15 ML SYR IV SCH; -CHOL2000 PO; -CYM/60 PO; +DEXAMETHASONE SOD INJ 4 MG/ML VIAL ONE; -FERR324T4 PO; -FRCT/ PO; -HYDR-4380 PO; +LACTATED RINGER'S 1,000 ML IV SCH; -LORA-741 PO; -LYR50 PO; -MULT-513 PO; -PROP20TA67 PO; -SOLI10TA2 PO
[2019-05-28] MEDS ORDERED: PROPOFOL IV EMULSION 10 MG/ML 20 ML VIAL IV ONE (09:41)
[2019-05-28] MEDS ORDERED: DEXAMETHASONE SOD INJ 4 MG/ML VIAL ONE (09:41)
[2019-05-28] MEDS ORDERED: LIDOCAINE HCL 2% 2 ML VIAL/AMP(20MG/ML) INFIL ONE (09:41)
[2019-05-28] MEDS ORDERED: ONDANSETRON INJ 2 MG/ML 2 ML VIAL ONE ×2 (09:41→14:30)
[2019-05-28] MEDS ORDERED: MIDAZOLAM HCL 1 MG/ML 2ML VIAL ONE (09:42)
[2019-05-28] MEDS ORDERED: fentaNYL citrate 100 MCG/2 ML VIAL ONE (09:42)
--- NOTE | 2019-05-28 11:56 | History & Physical Bridge Note ---
Date of Service May 28, 2019 History & Physical Bridge Note I have examined the patient, reviewed the History & Physical and in the interval since the performance of the History & Physical I have noted the following changes of clinical significance: no changes noted
[2019-05-28] MEDS ORDERED: CEFAZOLIN 2,000 MG/15 ML IV PUSH IV ONE (12:23)
--- NOTE | 2019-05-28 16:14 | Post Operative Brief Note ---
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 morbid obesity BMI 40.8 Post-Op Diagnosis: Same intact radial nerve Procedure Operation Date: 05/28/19 11:00 Actual Procedures Left Humerus Open Reduction Internal Fixation with locking plate fixation- Lee Tai MD Including radial Nerve Exploration increased level difficulty due to morbid obesity BMI 40.8- Lee Tai MD Surgeon Lee Tai MD Planer Operator Brandin YBARRA Estimated Blood Loss 75 Findings Consistent with Post-Op Diagnosis Anesthesia Type General Regional Complications none Disposition Accompanied Patient To Recovery: No Disposition: Recovery Room Overlapping Procedure I was immediately available: during the entire case.
--- NOTE | 2019-05-28 16:37 | Anesthesiology Progress Note ---
Date of Service May 28, 2019 Anesthesia Post Procedure Vital Signs Vital Signs: Temp Pulse Resp BP Pulse Ox 05/28/19 09:36 37 C 80 20 135/70 93 Pain Intensity Left Arm: Pain Intensity: 7 Transfer of Care Handoff Completed per policy Notes Mental Status: alert / awake / arousable Patient Amnestic to Procedure: Yes Nausea / Vomiting: adequately controlled Pain: adequately controlled Airway Patency, RR, SpO2: stable & adequate BP & HR: stable & adequate Hydration State: stable & adequate Anesthetic Complications: no major complications apparent Notes: Block working well in pacu
--- NOTE | 2019-05-28 16:41 | Fluoroscopy Report ---
FL humerus LT 2V CLINICAL HISTORY: LEFT ORIF HUMERUS COMPARISON STUDY: None. FLUOROSCOPY TIME: 31 seconds. FINDINGS: 5 fluoroscopic spot images of the left humerus demonstrate internal fixation of a distal hu meral shaft fracture with a cortical plate and screws. The hardware appears intact. The alignment burton ears near-anatomic. IMPRESSION: Fluoroscopy provided for internal fixation of a left humerus fracture. Electronically signed by: Guanakito Kumari M.D. 05/28/2019 4:40 PM
[2019-05-28] MEDS ORDERED: PROMETHAZINE HCL 6.25 MG in SODIUM CHLORIDE 0.9% 50 ML IV STA (17:04)
[2019-05-28] MEDS ORDERED: LORazepam 0.5 MG/1 ML VIAL IV STA (17:08)
[2019-05-28] MEDS ORDERED: LORazepam 2 MG/4 ML VIAL ONE (17:10)
[2019-05-28] MEDS ORDERED: SOD PHOSPHATE/SOD BIPHOSPHATE ENEMA 132 ML BTL PR PRN (18:10)
[2019-05-28] MEDS ORDERED: METOCLOPRAMIDE HCL INJ 5 MG/ML 2 ML VIAL IV PRN (18:10)
[2019-05-28] MEDS ORDERED: BISACODYL 10 MG SUPP PR PRN ×2 (18:10)
[2019-05-28] MEDS ORDERED: ONDANSETRON INJ 2 MG/ML 2 ML VIAL IV PRN (18:10)
[2019-05-28] MEDS ORDERED: HYDROmorphone INJ 0.5 MG/0.5 ML SYR IV PRN (18:10)
[2019-05-28] MEDS ORDERED: NALOXONE HCL 0.4 MG/1 ML VIAL/CARP IV PRN (18:10)
[2019-05-28] MEDS ORDERED: FEXOFENADINE HCL 180 MG TAB PO PRN (18:10)
[2019-05-28] MEDS ORDERED: CYANOCOBALAMIN 1000 MCG/ML VIAL IM SCH (18:10)
[2019-05-28] MEDS ORDERED: MAGNESIUM HYDROXIDE SUSP 30 ML UDC PO PRN ×2 (18:10)
[2019-05-28] MEDS ORDERED: BuPROPion SR 100 MG TABCR PO SCH (18:30)
[2019-05-28] MEDS ORDERED: CARBOHYDRATES FOR HYPOGLYCEMIA PO PRN (18:35)
[2019-05-28] MEDS ORDERED: GLUCOSE 10 TABS/TUBE PO PRN (18:35)
[2019-05-28] MEDS ORDERED: GLUCAGON FOR INJ 1 MG VIAL SQ PRN (18:35)
[2019-05-28] MEDS ORDERED: DEXTROSE 50% 50 ML SYRINGE IV PRN (18:35)
[2019-05-28] MEDS ORDERED: GLUCOSE 40% GEL 15 GM TUBE PO PRN (18:35)
--- NOTE | 2019-05-28 18:50 | Hospitalist Consultation ---
Date of Consultation May 28, 2019 Assessment & Plan (1) Left humeral fracture: - S/p left humerus ORIF with locking plate fixation and radial nerve exploration today. - Pain control and DVT ppx for primary team. - Monitor CBC qAM to evaluate for acute blood loss. - PT/OT for discharge planning. (2) Lumbar postlaminectomy syndrome: - S/p recent radiofrequency ablation right S2 and S3 bipolar with pain management on 05/05/19. - Acute pain management per ortho team; also continuing home meds. (3) Fibromyalgia: - Continue home Cymbalta and Lyrica as prescribed. - Acute pain management per primary team. (4) Depression: - Continue Welbutrin and Cymbalta as prescribed. (5) Generalized anxiety disorder: - Continue Buspar as prescribed. - Ativan QID prn. (6) Common migraine without aura: - PRN meds -- no symptoms at this time. - Continue Propanolol as prescribed. (7) Hypercholesterolemia: - Not currently on statin agent. (8) Diabetes: - Most recent A1C was 6.1 in April 2019. - SSI coverage ordered. (9) Iron deficiency anemia: - Continue Ferrous sulfate daily. - Monitor H/H daily. (10) Vitamin B12 deficiency: - Receiving IM B-12 monthly as outpatient. (11) Vitamin D deficiency: - Continue home Vit D supplementation. (12) Lower extremity edema: - On Lasix 40 mg PO daily at home prn edema -- will hold for now, re- evaluate daily. - Most recent TTE with no evidence of CHF. - Caution in setting of IV fluids -- currently receiving 100 cc/hr. (13) GERD (gastroesophageal reflux disease): - Not currently on statin agent. (14) Morbid obesity: - BMI 40.8 -- encourage weight loss and exercise. (15) DVT prophylaxis: - SCDs; pharmacologic ppx per ortho team. Dispo: Med/surg; will continue to follow, please call with any questions. Supervising Physician Co-Signing Physician Notes TATE Supervision Note: I personally saw and examined the patient. I verified all calabrese points and agree with TATE Patterson with the following exceptions and/or additions: Patient doing very well after surgery, feels her shoulder is the best it has felt in a month since her injury. Denies chest pain or shortness of breath, denies abdominal pains. Vitals reviewed Morbidly obese Regular rate and rhythm, no murmurs scabs rubs Lungs clear to auscultation bilaterally, breathing unlabored Left upper extremity in shoulder sling, dressing in place over left shoulder Abdomen positive bowel sounds soft nontender nondistended Extremities trace pitting edema bilaterally, no calf tenderness 69-year-old female here with left ORIF of the shoulder, medically stable -We will continue to follow History of Present Illness Reason for Consultation: Medical Management Attending Physician: Lee Tai MD History of Present Illness Ms. Sellers is a 69 year old female s/p left humerus ORIF and radial nerve exploration. She has h/o reverse total shoulder arthroplasty in 2013 and developed a humerus shaft fracture following a fall at home recently. She is doing well post op. Allergies Allergy/AdvReac Type Severity Reaction Status Date / Time carbamazepine Allergy Severe RESPIRATORY Verified 05/28/19 09:19 DISTRESS cefaclor Allergy Severe Hives Verified 05/28/19 09:19 Sulfa (Sulfonamide Allergy Severe HIVES, SOB Verified 05/28/19 09:19 Antibiotics) lovastatin Allergy Intermediate Joint Pain Verified 05/28/19 09:19 pravastatin Allergy Intermediate Joint Pain Verified 05/28/19 09:19 Klznuvn-Buq-Ynr Reductase Allergy Intermediate JOINT AND Verified 05/28/19 09:19 Inhibitor MUSCLE PAIN prednisone AdvReac Intermediate TERRIBLE Verified 05/28/19 09:19 HEADACHE, 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 Home Medications Home Medications Medication Instructions Recorded Confirmed Type bisacodyl 10 mg LA UD PRN 05/25/19 05/28/19 History buspirone 10 mg PO BID 05/25/19 05/28/19 History calcium carbonate-vitamin D3 1 cap PO DAILY 05/25/19 05/28/19 History [Calcium 600 + D(3)] cyanocobalamin (vitamin B-12) 1,000 mcg IM MONTHLY 05/25/19 05/28/19 History docusate sodium [Colace] 100 mg PO BID 05/25/19 05/28/19 History duloxetine [Cymbalta] 90 mg PO BID 05/25/19 05/28/19 History eletriptan [Relpax] 40 mg PO DAILY PRN 05/25/19 05/28/19 History ergocalciferol (vitamin D2) 50,000 unit PO WK 05/25/19 05/28/19 History [Vitamin D2] ferrous sulfate [iron] 325 mg PO DAILY 05/25/19 05/28/19 History fexofenadine 180 mg PO DAILY PRN 05/25/19 05/28/19 History furosemide [Lasix] 40 mg PO DAILY 05/25/19 05/28/19 History hydrocodone-acetaminophen 1 tab PO Q6H PRN 05/25/19 05/28/19 History lorazepam 0.5 mg PO QID PRN 05/25/19 05/28/19 History magnesium hydroxide [Milk of 30 ml PO DAILY PRN 05/25/19 05/28/19 History Magnesia] multivitamin 1 tab PO DAILY 05/25/19 05/28/19 History oxycodone 15 mg PO Q3H PRN 05/25/19 05/28/19 History pregabalin [Lyrica] 50 mg PO BID 05/25/19 05/28/19 History sodium phosphates [Enema 197 ml LA Q3D PRN 05/25/19 05/28/19 History Disposable] solifenacin [Vesicare] 5 mg PO DAILY 05/25/19 05/28/19 History bupropion HCl 150 mg PO BID 05/28/19 05/28/19 History propranolol 20 mg PO BID 05/28/19 05/28/19 History Patient History Medical History Morbid obesity Anxiety Diabetes Depressive disorder Fibromyalgia GERD (gastroesophageal reflux disease) Hypercholesterolemia Lumbar stenosis with neurogenic claudication Migraine, chronic, without aura Pain, joint, multiple sites Vitamin D deficiency Osteopenia (Acute) Anemia Degenerative disc disease Diverticular disease Osteoarthritis Postgastric surgery syndromes Displaced fracture of distal end of left humerus Surgical History History of total shoulder replacement H/O cervical spine surgery (Resolved) NECK SPINE FUSION (CERV, BELOW C2) H/O gastric bypass (Resolved) History of appendectomy (Resolved) History of cataract surgery (Resolved) History of cholecystectomy (Resolved) History of colonoscopy (Resolved) History of esophagogastroduodenoscopy (EGD) (Resolved) History of hysterectomy (Resolved) History of knee replacement (Resolved) Right History of lumbar surgery (Resolved) Fusion Status post panniculectomy (Resolved) Difficult airway for intubation POSSIBLE -- H/O GLIDESCOPE INTUBATION 2012 [facility]. Family History Other Family hx of colon cancer Social History Current Living Situation: [facility] Current Living Situation Comment: [facility] current occupational status: retired Feels Safe at Home: Yes Smoking Status: Never smoker Tobacco Cessation Education Requested by Patient: No Hx Alcohol Use: No Hx Substance Use: No Review of Systems Review of Systems: All systems reviewed & are unremarkable except as noted in HPI & below Constitutional: no fever, no chills, no fatigue, no weakness and no anorexia Respiratory: no cough, no dyspnea and no dyspnea on exertion Cardiovascular: no chest pain, no palpitations and no edema Gastrointestinal: no abdominal pain, no nausea and no constipation Genitourinary: no difficulty urinating Musculoskeletal: + joint pain; no back pain Integumentary: no non-healing lesions Physical Exam Physical Exam: General: Resting comfortably HEENT: NC/AT; PERRLA with EOMI; [place] conjunctiva, MMM. No erythema of posterior pharynx Neck: Supple and nontender Cardiac: RRR Lungs: on 3L via NC; CTA bilaterally Abdomen: Bowel normoactive X 4; Nontender to palpation Extremities: Warm. No edema present. Dressing in place on RUE. Neuro: No focal weakness Skin: No rash Results & Data Vital Signs (Past 12 Hours) Vital Signs Temp Pulse Pulse Resp BP Pulse Ox 05/28/19 18:35 37.5 C 79 19 123/79 100 05/28/19 18:20 37.6 C H 79 18 136/81 98 05/28/19 17:55 81 14 143/66 H 94 05/28/19 17:45 36.4 C L 81 15 132/76 94 05/28/19 17:35 82 17 105/77 95 05/28/19 17:25 77 18 116/76 97 05/28/19 17:15 81 18 133/77 97 05/28/19 17:05 36.7 C 87 22 132/83 97 05/28/19 16:55 99 H 22 124/73 97 05/28/19 16:45 115 H 25 H 115/73 97 05/28/19 16:35 106 H 18 139/85 98 05/28/19 16:29 36.8 C 91 H 12 143/85 H 100 05/28/19 09:36 37 C 80 20 135/70 93 Laboratory Results 05/28/19 05/28/19 Range/Units 17:54 09:29 POC Glucose 178 H 109 H (70-99) PG Care Time/CCT Total # of Minutes Spent Total Time Spent with Patient: Total time spent is greater than 50% in coordination of care (as documented) at patient's floor/unit and/or counseling patient:
[2019-05-28] MEDS ORDERED: SODIUM CHLORIDE 0.9% 1000ML 1,000 ML IV SCH (19:00)
[2019-05-28] MEDS: INSULIN ASPART 100 UNITS/ML 3 ML PEN SC SCH ×2 (19:32→21:09)
[2019-05-28] MEDS: BuPROPion SR 150 MG TABCR PO SCH (19:47)
[2019-05-28] MEDS ORDERED: DOCUSATE SODIUM 100 MG CAP PO SCH (21:00)
[2019-05-28] MEDS: ACETAMINOPHEN 500 MG TAB PO SCH (21:08)
[2019-05-28] MEDS: DULOXETINE HCL 30 MG CAP PO SCH (21:08)
[2019-05-28] MEDS: DOCUSATE SODIUM 100 MG CAP PO SCH ×2 (21:09→21:14)
[2019-05-28] MEDS: PROPRANOLOL HCL 20 MG TAB PO SCH (21:09)
[2019-05-28] MEDS: SENNA 8.6 MG TAB PO SCH (21:09)
[2019-05-28] MEDS: PREGABALIN 50 MG CAP PO SCH (21:11)
[2019-05-28] MEDS ORDERED: VANCOMYCIN HCL 1,500 MG in SODIUM CHLORIDE 0.9% 500 ML IV ONE (22:00)
[2019-05-28] MEDS: VESICARE: ORDER AWAITING ACTION SCH (23:18)
--- NOTE | 2019-05-29 00:13 | Operative Report ---
DATE OF OPERATION: 05/28/2019 DATE OF PROCEDURE: 05/28/2019 INDICATION FOR PROCEDURE: The patient is a 69-year-old female who I performed a reverse total shoulder replacement on the past. She had a fall and had a periprosthetic fracture below the level of the implant, was stable implant. Just spiral humerus fracture. She had a complete radial nerve palsy with no wrist, finger or thumb extension and numbness of her hand. She had a closed reduction performed due to a displaced fracture at [facility]. The reduction was good but then reduction was lost after 1 week in coaptation splint application. There is some early healing, but malaligned distal humerus fracture with a significant gap between the fracture fragments. Because of the radial nerve palsy displaced fracture, we chose to proceed to perform ORIF of the humerus and radial nerve exploration. PREOPERATIVE DIAGNOSES: Periprosthetic fracture below a reverse total shoulder replacement, left spiral extraarticular humerus fracture with complete radial nerve palsy and morbid obesity, BMI of 40.8. POSTOPERATIVE DIAGNOSES: Periprosthetic fracture below a reverse total shoulder replacement, left spiral extraarticular humerus fracture with complete radial nerve palsy and morbid obesity, BMI of 40.8 with intact radial nerve. PROCEDURE: Open reduction internal fixation with Synthes lateral condylar locking plate and screw fixation with radial nerve exploration and increased level of difficulty due to morbid obesity, BMI of 40.8. SURGEON: Lee Tai MD PYROGLAZER: Brandin Espinal PA-C. ANESTHESIA: Regional block and general. OPERATIVE PROCEDURE: The patient was taken to the operating room, anesthetized under regional block and general. She was placed on a beanbag positioner on the operating room table, placed through the semilateral decubitus position about 45 degree tilt just so we could do a posterior approach to the elbow placing her arm in a bolster. All extremities were well padded. After the beanbag was deflated and she was stable in position, her left upper extremity was prepped and draped in sterile fashion. Her arm was significantly obese. A long longitudinal incision was made from the olecranon up to the upper humeral shaft area posteriorly. Skin was incised sharply. Deep layer fat was divided down to the fascia and subcutaneous bleeders were cauterized as necessary. The triceps split technique was used. The triceps was split in the midline starting at the olecranon and up to the proximal length of the incision. The triceps was divided longitudinally and dissection was carefully taken down to the medial head on the bone. The lateral head was retracted laterally, the long and retracted medially. It was dissected down the middle until we got to the bone of the distal fragment and dissected up to the fracture site, at which time, we encountered callus which was removed to identify the spiral fracture. The ends of the bone were dissected out and identified clearly, so we could reduce this in position. The dissection was then taken proximally to identify the radial nerve. We did clearly identify the radial nerve and there was no scar tissue or callus over the nerve and the nerve was proximal to the fracture, was clearly not within the fracture. At this time, the fracture was irrigated out copiously, reduced, held with several bone holding clamps and then a lag technique was made from medial to lateral, distal to proximal in an angle to lag across the spiral fracture. This was partially stable, but not 100% stable due to fairly unstable fractures, so we maintained clamps in place while we fashioned a Synthes 8-hole lateral condyle locking plate. The plate was of direct posterior over the shaft and curved to the lateral side to avoid the olecranon fossa. We had the plate some bend to the plate in because the patient had some relative flexion of the distal humerus with curvature. Matches up with plate benders and then placed the plate in position and did careful retraction of the nerve and then artery to assure that the plate was on bone and the nerve was overlying the upper plate. I want to get plate long enough, so that we overlap the prosthetic to eliminate stress riser at that area. After we checked this under fluoroscopy, I placed 3.5 cortical screws proximal and distal to the spiral fracture and then placed the 3.5 locking screws into the lateral condyle with the distal most screws being unicortical where the screws were aiming toward the joint. All other proximal screws had bicortical fixation. The remainder of the screws were locked leading the proximal 2 screws open which were overlying the prosthetic and the position of the nerve was over the hole second from the end of the plate with the nerve ended up lying after the fixation was completely obtained. All screws were felt to be in appropriate position on AP and lateral views and the reduction was anatomic. The wound was irrigated and the triceps fascia was closed with [id number] #1 Vicryl sutures. Subcutaneous tissue closed with [id number] #1 Vicryl and 2-0 Vicryl sutures. Skin was closed with hanna. Sterile dressings were applied including Xeroform, sterile gauze and a sterile Webril and we did place a posterior splint from the hand up to the posterior humerus. No tourniquet was used. ESTIMATED BLOOD LOSS: 75 mL. DRAINS: None. COMPLICATIONS: None. SPECIMENS: None. TATE Belcher was my first front ventilator. He functioned as first front ventilator for the entire procedure. He assisted in arm positioning, soft tissue retraction, assisted in reduction and he assisted in the closure and application of the splint and assisted in the postoperative care of the patient. Otherwise, increased level of difficulty due to BMI of 40.8 and estimated 45 minutes increased time due to increased difficulty to reduce the fracture expose the fracture fragments and performed the procedure in general. I attest to the content of the Intraoperative Record and any orders documented therein. Any exception s are noted below.
[2019-05-29] MEDS: OXYCODONE HCL IR 5 MG TAB (IMMEDIATE RELEASE) PO PRN ×6 (01:28→21:37)
[2019-05-29] MEDS: ACETAMINOPHEN 500 MG TAB PO SCH ×3 (04:44→21:45)
[2019-05-29 06:25] LABS: Hematocrit (blood only) 28.1 % (37-47); Hemoglobin 8.9 g/dL (12.0-16.0); Mean Corpuscular Hgb Conc 31.7 g/dL (32-36); Mean Corpuscular Volume 89.2 fL (80-100); Mean Platelet Volume 9.6 fL (7.4-10.4); Platelet Count 289 K/uL (130-400); RDW Coefficient of Variation 15.2 % (11.5-14.5); RDW Standard Deviation 49.6 fL (36.4-46.3); Red Blood Count 3.15 M/uL (4.2-5.4); White Blood Count 6.73 K/uL (4.8-10.8)
[2019-05-29 07:04] LABS: BUN Creatinine Ratio 19.2 (10-20); Calcium 8.4 mg/dl (8.5-10.1); Est GFR (African American) 65.5; Est GFR (Non-African American) 56.5
--- NOTE | 2019-05-29 08:25 | Orthopedic Progress Note ---
Date of Service May 29, 2019 Assessment & Plan (1) Left humeral fracture: POD #1, Left humerus ORIF, Radial nerve exploration. No PT. D/c plans, back to [place] likely tomorrow. Pain control. Dressing change in the AM. Subjective POD #1, Pain is main issue. Denies SOB. Cp, N/V. Physical Exam Physical Exam: Left arm dressings c/d/i, no drainage, fingers minimally mobile actively,, sling in tact. A&Ox3. Results & Data Vital Signs (Past 12 Hours) Vital Signs Temp Pulse Resp BP Pulse Ox 05/29/19 03:37 37.0 C 67 14 102/63 95 05/28/19 23:14 36.9 C 57 L 16 105/66 96 05/28/19 21:00 37.3 C 70 17 108/67 95
[2019-05-29] MEDS: PREGABALIN 50 MG CAP PO SCH ×2 (08:56→21:44)
[2019-05-29] MEDS: VESICARE: ORDER AWAITING ACTION SCH ×3 (08:56→22:52)
[2019-05-29] MEDS: BuPROPion SR 150 MG TABCR PO SCH ×2 (08:56→16:40)
[2019-05-29] MEDS: PROPRANOLOL HCL 20 MG TAB PO SCH ×2 (08:57→21:44)
[2019-05-29] MEDS: DULOXETINE HCL 30 MG CAP PO SCH ×2 (08:57→21:45)
[2019-05-29] MEDS: DOCUSATE SODIUM 100 MG CAP PO SCH ×2 (08:58→21:45)
[2019-05-29] MEDS: FERROUS SULFATE 325 MG TAB PO SCH (08:58)
[2019-05-29] MEDS: CALCIUM 600MG + VIT D 400 IU TAB PO SCH (08:58)
[2019-05-29] MEDS: MULTIVITAMIN TAB PO SCH (08:59)
[2019-05-29] MEDS ORDERED: DULOXETINE HCL 30 MG CAP PO SCH (09:00)
[2019-05-29] MEDS ORDERED: MULTIVITAMIN TAB PO SCH (09:00)
[2019-05-29] MEDS ORDERED: ERGOCALCIFEROL 50,000 UNITS CAP PO SCH (09:00)
[2019-05-29] MEDS ORDERED: FUROSEMIDE 40 MG TAB PO SCH (09:00)
[2019-05-29] MEDS: INSULIN ASPART 100 UNITS/ML 3 ML PEN SC SCH ×4 (09:02→21:48)
--- NOTE | 2019-05-29 11:51 | Hospitalist Progress Note ---
Date of Service May 29, 2019 Assessment & Plan (1) Left humeral fracture: - S/p left humerus ORIF with locking plate fixation and radial nerve exploration on 05/28, POD#1. - Pain control and DVT ppx for primary team. - PT/OT for discharge planning. (2) Lumbar postlaminectomy syndrome: - S/p recent radiofrequency ablation right S2 and S3 bipolar with pain management on 05/05/19. - Acute pain management per ortho team; also continuing home meds. (3) Fibromyalgia: - Continue home Cymbalta and Lyrica as prescribed. - Acute pain management per primary team. (4) Depression: - Continue Welbutrin and Cymbalta as prescribed. (5) Generalized anxiety disorder: - Continue Buspar as prescribed. - Ativan QID prn. (6) Common migraine without aura: - PRN meds -- no symptoms at this time. - Continue Propanolol as prescribed. (7) Hypercholesterolemia: - Not currently on statin agent. (8) Diabetes: - Most recent A1C was 6.1 in April 2019. - SSI coverage ordered -- will increase coverage due to mild hyperglycemia. (9) Iron deficiency anemia: - Continue Ferrous sulfate daily. - Monitor H/H daily -- trending down, likely related to acute blood loss and IV fluids. (10) Vitamin B12 deficiency: - Receiving IM B-12 monthly as outpatient. (11) Vitamin D deficiency: - Continue home Vit D supplementation. (12) Lower extremity edema: - On Lasix 40 mg PO daily at home prn edema. - Most recent TTE with no evidence of CHF. - No LE edema noted; will continue to hold diuretic. (13) GERD (gastroesophageal reflux disease): - Not currently on statin agent. (14) Morbid obesity: - BMI 40.8 -- encourage weight loss and exercise. (15) DVT prophylaxis: - SCDs; pharmacologic ppx per ortho team. Dispo: Pt. is medically stable, will sign off. Please call with any questions. Supervising Physician Co-Signing Physician Notes PA Supervision Note: I did not personally see or examine the patient today, but I verified all calabrese points of TATE Patterson's assessment and plan with the following exceptions /additions: None Subjective Pt. is doing well overall. She states pain in arm is rated as a 4-5/10. Is eating/drinking. Had a BM, denies urinary retention. Review of Systems Review of Systems: All systems reviewed & are unremarkable except as noted in HPI & below Constitutional: no fever, no chills, no fatigue, no weakness and no anorexia Respiratory: no cough, no dyspnea, no dyspnea on exertion and no wheezing Cardiovascular: no chest pain, no palpitations and no edema Gastrointestinal: no abdominal pain, no nausea and no constipation Genitourinary: no difficulty urinating Musculoskeletal: no back pain and no joint pain Integumentary: no non-healing lesions Allergy / Immunological: no rash Physical Exam Physical Exam: General: Resting comfortably HEENT: NC/AT; PERRLA with EOMI; [place] conjunctiva, MMM. No erythema of posterior pharynx Neck: Supple and nontender Cardiac: RRR Lungs: room air; CTA bilaterally Abdomen: Bowel normoactive X 4; Nontender to palpation Extremities: Warm. No edema present. Dressing in place RUE. Neuro: No focal weakness Skin: No rash Results & Data Vital Signs (Past 12 Hours) Vital Signs Temp Pulse Resp BP Pulse Ox 05/29/19 08:42 37.2 C 74 18 107/67 98 05/29/19 03:37 37.0 C 67 14 102/63 95 Laboratory Results 05/29/19 05/29/19 05/29/19 Range/Units 08:46 05:50 05:50 WBC 6.73 (4.8-10.8) K/uL RBC 3.15 L (4.2-5.4) M/uL Hgb 8.9 L (12.0-16.0) g/dL Hct 28.1 L (37-47) % MCV 89.2 (80-100) fL MCH 28.3 (25-34) pg MCHC 31.7 L (32-36) g/dL RDW Std Deviation 49.6 H (36.4-46.3) fL RDW Coeff of Mukul 15.2 H (11.5-14.5) % Plt Count 289 (130-400) K/uL MPV 9.6 (7.4-10.4) fL Sodium 140 (136-145) mmol/L Potassium 4.0 (3.5-5.1) mmol/L Chloride 104 (98-107) mmol/L Carbon Dioxide 31 (21-32) mmol/L Anion Gap 5.0 (3-11) BUN 20 H (7-18) mg/dl Creatinine 1.02 (0.6-1.2) mg/dl Est Cr Clr Drug Dosing 61.0 ml/min Est GFR ( Amer) 65.5 Est GFR (Non-Af Amer) 56.5 BUN/Creatinine Ratio 19.2 (10-20) Glucose 110 H (70-99) mg/dl POC Glucose 105 H (70-99) Calcium 8.4 L (8.5-10.1) mg/dl Magnesium 2.0 (1.8-2.4) mg/dl 05/28/19 05/28/19 05/28/19 Range/Units 20:40 18:44 17:54 WBC (4.8-10.8) K/uL RBC (4.2-5.4) M/uL Hgb (12.0-16.0) g/dL Hct (37-47) % MCV (80-100) fL MCH (25-34) pg MCHC (32-36) g/dL RDW Std Deviation (36.4-46.3) fL RDW Coeff of Mukul (11.5-14.5) % Plt Count (130-400) K/uL MPV (7.4-10.4) fL Sodium (136-145) mmol/L Potassium (3.5-5.1) mmol/L Chloride (98-107) mmol/L Carbon Dioxide (21-32) mmol/L Anion Gap (3-11) BUN (7-18) mg/dl Creatinine (0.6-1.2) mg/dl Est Cr Clr Drug Dosing ml/min Est GFR ( Amer) Est GFR (Non-Af Amer) BUN/Creatinine Ratio (10-20) Glucose (70-99) mg/dl POC Glucose 210 H 176 H 178 H (70-99) Calcium (8.5-10.1) mg/dl Magnesium (1.8-2.4) mg/dl PG Care Time/CCT Total # of Minutes Spent Total Time Spent with Patient: Total time spent is greater than 50% in cook house supervisor rdination of care (as documented) at patient's floor/unit and/or counseling patient:
[2019-05-29] MEDS: SENNA 8.6 MG TAB PO SCH (21:44)
[2019-05-30] MEDS: OXYCODONE HCL IR 5 MG TAB (IMMEDIATE RELEASE) PO PRN ×4 (01:48→19:44)
[2019-05-30] MEDS: ACETAMINOPHEN 500 MG TAB PO SCH ×3 (05:44→22:07)
[2019-05-30 06:07] LABS: Hemoglobin 9.6 g/dL (12.0-16.0); Mean Corpuscular Volume 88.6 fL (80-100); Mean Platelet Volume 9.9 fL (7.4-10.4); Platelet Count 299 K/uL (130-400); RDW Coefficient of Variation 15.4 % (11.5-14.5); RDW Standard Deviation 49.6 fL (36.4-46.3); White Blood Count 5.13 K/uL (4.8-10.8)
[2019-05-30 06:41] LABS: BUN Creatinine Ratio 18.5 (10-20); Creatinine Clr Calc Pharmacy 65.5 ml/min; Est GFR (African American) 71.3; Est GFR (Non-African American) 61.5; Potassium 3.9 mmol/L (3.5-5.1)
[2019-05-30] MEDS: MULTIVITAMIN TAB PO SCH (07:50)
[2019-05-30] MEDS: DULOXETINE HCL 30 MG CAP PO SCH ×2 (07:50→20:50)
[2019-05-30] MEDS: PROPRANOLOL HCL 20 MG TAB PO SCH ×2 (07:50→20:50)
[2019-05-30] MEDS: VESICARE: ORDER AWAITING ACTION SCH ×3 (07:50→23:07)
[2019-05-30] MEDS: FERROUS SULFATE 325 MG TAB PO SCH (07:50)
[2019-05-30] MEDS: CALCIUM 600MG + VIT D 400 IU TAB PO SCH (07:51)
[2019-05-30] MEDS: BuPROPion SR 150 MG TABCR PO SCH ×2 (07:51→16:49)
[2019-05-30] MEDS: DOCUSATE SODIUM 100 MG CAP PO SCH ×2 (07:51→20:50)
[2019-05-30] MEDS: PREGABALIN 50 MG CAP PO SCH ×2 (07:54→20:51)
--- NOTE | 2019-05-30 08:29 | Orthopedic Progress Note ---
Date of Service May 30, 2019 Assessment & Plan (1) Left humeral fracture: POD #2, Left humerus ORIF, Radial nerve exploration. No PT. D/c plans, back to [place] when insurance approved. Pain control. Splint removed by me, wrist area cut back, splint re applied, sterile 4x4's over incision were not disrupted. Sling re applied and patient stated felt much better. Subjective POD #2, Pain is better. Denies SOB. Cp, N/V. States splint is rubbing radial side of wrist. Physical Exam Physical Exam: Left splint/ dressings c/d/i. Sling intact, minimal finger motion. Results & Data Vital Signs (Past 12 Hours) Vital Signs Temp Pulse Resp BP Pulse Ox 05/30/19 07:40 36.8 C 68 16 108/67 95 05/29/19 23:35 37 C 63 16 112/60 94 05/29/19 21:40 71 122/76
[2019-05-30] MEDS: INSULIN ASPART 100 UNITS/ML 3 ML PEN SC SCH ×4 (09:10→20:44)
[2019-05-30] MEDS: LORazepam 0.5 MG TAB PO PRN ×2 (09:14→19:47)
[2019-05-30] MEDS: SENNA 8.6 MG TAB PO SCH (20:50)
[2019-05-31] MEDS: OXYCODONE HCL IR 5 MG TAB (IMMEDIATE RELEASE) PO PRN ×3 (00:07→10:33)
[2019-05-31] MEDS: ACETAMINOPHEN 500 MG TAB PO SCH ×2 (05:37→13:52)
[2019-05-31 05:59] LABS: Hematocrit (blood only) 28.2 % (37-47); Hemoglobin 8.7 g/dL (12.0-16.0); Mean Corpuscular Hgb Conc 30.9 g/dL (32-36); Mean Corpuscular Volume 89.5 fL (80-100); Mean Platelet Volume 9.7 fL (7.4-10.4); Platelet Count 259 K/uL (130-400); RDW Coefficient of Variation 15.3 % (11.5-14.5); RDW Standard Deviation 49.9 fL (36.4-46.3); Red Blood Count 3.15 M/uL (4.2-5.4); White Blood Count 4.03 K/uL (4.8-10.8)
[2019-05-31 06:33] LABS: BUN Creatinine Ratio 16.6 (10-20); Calcium 8.5 mg/dl (8.5-10.1); Creatinine Clr Calc Pharmacy 66.2 ml/min; Est GFR (African American) 72.2; Est GFR (Non-African American) 62.3; Potassium 4.3 mmol/L (3.5-5.1)
[2019-05-31] MEDS: VESICARE: ORDER AWAITING ACTION SCH ×2 (08:36→15:39)
[2019-05-31] MEDS: DULOXETINE HCL 30 MG CAP PO SCH (08:37)
[2019-05-31] MEDS: CALCIUM 600MG + VIT D 400 IU TAB PO SCH (08:37)
[2019-05-31] MEDS: DOCUSATE SODIUM 100 MG CAP PO SCH (08:37)
[2019-05-31] MEDS: PROPRANOLOL HCL 20 MG TAB PO SCH (08:38)
[2019-05-31] MEDS: FERROUS SULFATE 325 MG TAB PO SCH (08:38)
[2019-05-31] MEDS: BuPROPion SR 150 MG TABCR PO SCH (08:39)
[2019-05-31] MEDS: MULTIVITAMIN TAB PO SCH (08:39)
[2019-05-31] MEDS: PREGABALIN 50 MG CAP PO SCH (08:44)
[2019-05-31] MEDS: LORazepam 0.5 MG TAB PO PRN (08:44)
[2019-05-31] MEDS: INSULIN ASPART 100 UNITS/ML 3 ML PEN SC SCH ×2 (08:45→12:39)
--- NOTE | 2019-05-31 09:38 | Orthopedic Progress Note ---
Date of Service May 31, 2019 Assessment & Plan (1) Left humeral fracture: POD #3, Left humerus ORIF, Radial nerve exploration. No PT for LUE. Continue current pain control. DC Plans - [facility] if approved. Subjective Pt awake,alert. Sitting up in bed watching TV. No complaints this AM. Pain controlled. Splint was redone yesterday and continues to feel comfortable. Hoping to return to [facility] today if approved. Physical Exam Physical Exam: OLEGE splint C/D/I. Moving her fingers well. Slight decrease in sensation compared to her other hand. Cap refill < 2 seconds. Results & Data Vital Signs (Past 12 Hours) Vital Signs Temp Pulse Resp BP Pulse Ox 05/31/19 07:12 36.7 C 60 18 102/67 97 05/30/19 22:55 37 C 59 L 16 96/62 L 96
--- NOTE | 2019-06-13 17:47 | Discharge Summary ---
HISTORY OF PRESENT ILLNESS: This is a 69-year-old female patient of Dr. Tai'severo complaining of left shoulder injury at home. She apparently fell at home recently. She was unable to move her arm. She was transferred to [facility] where she was diagnosed with a left humerus fracture below a reverse total shoulder arthroplasty that had been done in 2013. There was not a periprosthetic fracture but a humerus fracture below the reversed total shoulder arthroplasty. The patient wished to proceed with a left humerus ORIF and radial nerve exploration due to decreased radial nerve function. PAST MEDICAL HISTORY: Heart murmur, hypertension, anxiety, peripheral neuropathy, anemia, osteoarthritis, spine problems, neck problems and obesity. POSTOPERATIVE COURSE: The patient underwent a left humerus ORIF below a reversed total shoulder arthroplasty with radial nerve exploration and release. She was followed closely with medical consultation, pain control and limited physical therapy. The patient did well postoperatively and was discharged home on postoperative day #3. PHYSICAL EXAMINATION: On discharge, left shoulder incision was clean, dry and intact. Melly were intact. Skin edges were approximated well. There was no redness or drainage. She still had radial nerve palsy with inability to extend her fingers and thumb. She had moderate finger swelling. Her sling was intact. PLAN: The patient was discharged home on her preadmission medications. She will continue pain medications as needed. She will follow up as scheduled as an outpatient.
== END 2019-05-31 16:47 | DRG 493 ==
LOC: ASU 08:31 → 3E 16:48

== ENCOUNTER 2023-04-22 06:06 | Inpatient (IN) ==
--- NOTE | 2023-04-01 11:48 | PAT Medication Instructions ---
Medication Instructions Date of Service April 01, 2023 Home Medications Medication Instructions Recorded acetaminophen 500 mg capsule 1,000 mg PO BID PRN Fever Or Pain 05/26/20 #100 caps cholecalciferol (vitamin D3) 1,250 50,000 unit PO .weekly #12 caps 08/05/22 mcg (50,000 unit) capsule diclofenac sodium 1 % topical gel 4 g topical QID PRN knee and 10/14/22 shouler pain. #500 grams Lift Chair #1 ea 12/05/22 walker (Ultra-Light Rollator misc) #1 ea 12/05/22 eletriptan 40 mg tablet (Relpax) 40 mg PO DAILY PRN MIGRAINES #10 01/06/23 tabs ondansetron HCl 8 mg tablet 8 mg PO Q12H PRN nausea and 01/16/23 vomiting #60 tabs pregabalin 50 mg capsule (Lyrica) 50 mg PO TID #90 caps 01/31/23 furosemide 20 mg tablet (Lasix) 10 mg PO DAILY PRN weight gain #45 02/05/23 tabs hydrocodone 10 mg-acetaminophen 1 tab PO Q6H PRN Pain #120 tabs 03/05/23 325 mg tablet denosumab 60 mg/mL subcutaneous 60 mg subcut Q6MO #1 mL 03/18/23 syringe (Prolia) peg 3350-electrolytes 236 240 ml PO Q10M #4,000 mL 03/31/23 gram-22.74 gram-6.74 gram-5.86 gram solution (GaviLyte-G) cyanocobalamin (vitamin B-12) 1,000 mcg/mL injection solution 1,000 mcg IM MONTHLY multivitamin 1 tab PO QAM acetaminophen 500 mg capsule 1,000 mg PO BID PRN lorazepam 1 mg tablet (Ativan) 0.5 mg PO QID PRN cholecalciferol (vitamin D3) 1,250 mcg (50,000 unit) capsule 50,000 unit PO .weekly diclofenac sodium 1 % topical gel 4 g topical QID PRN nystatin 100,000 unit/gram topical powder 1 applic topical BID PRN ramelteon 8 mg tablet 8 mg PO HS magnesium chloride 1 tab PO QAM eletriptan 40 mg tablet (Relpax) 40 mg PO DAILY PRN ondansetron HCl 8 mg tablet 8 mg PO Q12H PRN duloxetine 60 mg capsule,delayed release (Cymbalta) 60 mg PO BID pregabalin 50 mg capsule (Lyrica) 50 mg PO TID furosemide 20 mg tablet (Lasix) 10 mg PO DAILY PRN mirabegron 50 mg tablet,extended release 24 hr (Myrbetriq) 50 mg PO QAM hydrocodone 10 mg-acetaminophen 325 mg tablet 1 tab PO Q6H PRN denosumab 60 mg/mL subcutaneous syringe (Prolia) 60 mg subcut Q6MO amlodipine 5 mg tablet 5 mg PO QAM aspirin 81 mg tablet,delayed release 81 mg PO QAM duloxetine 30 mg capsule,delayed release 30 mg PO BID ezetimibe 10 mg tablet (Zetia) 10 mg PO QAM losartan 25 mg tablet 25 mg PO QAM mirtazapine 7.5 mg tablet 7.5 mg PO QPM omeprazole 40 mg capsule,delayed release 40 mg PO QAM propranolol 60 mg capsule,24 hr,extended release 60 mg PO QAM peg 3350-electrolytes 236 gram-22.74 gram-6.74 gram-5.86 gram solution (GaviLyte-G) 240 ml PO Q10M Continue as directed cyanocobalamin (vitamin B-12) 1,000 mcg/mL injection solution 1,000 mcg IM MONTHLY eletriptan 40 mg tablet (Relpax) 40 mg PO DAILY PRN(if needed) ondansetron HCl 8 mg tablet 8 mg PO Q12H PRN(if needed) ASK your prescriber and surgeon denosumab 60 mg/mL subcutaneous syringe (Prolia) 60 mg subcut Q6MO aspirin 81 mg tablet,delayed release 81 mg PO QAM STOP taking 24 hours before surgery diclofenac sodium 1 % topical gel 4 g topical QID PRN nystatin 100,000 unit/gram topical powder 1 applic topical BID PRN DO NOT take the morning of surgery multivitamin 1 tab PO QAM cholecalciferol (vitamin D3) 1,250 mcg (50,000 unit) capsule 50,000 unit PO .weekly magnesium chloride 1 tab PO QAM furosemide 20 mg tablet (Lasix) 10 mg PO DAILY PRN losartan 25 mg tablet 25 mg PO QAM peg 3350-electrolytes 236 gram-22.74 gram-6.74 gram-5.86 gram solution (GaviLyte-G) 240 ml PO Q10M Take morning of surgery With a small sip of water, OTHERWISE NOTHING TO EAT OR DRINK AFTER MIDNIGHT: acetaminophen 500 mg capsule 1,000 mg PO BID PRN(if needed) lorazepam 1 mg tablet (Ativan) 0.5 mg PO QID PRN(if needed) duloxetine 60 mg capsule,delayed release (Cymbalta) 60 mg PO BID pregabalin 50 mg capsule (Lyrica) 50 mg PO TID mirabegron 50 mg tablet,extended release 24 hr (Myrbetriq) 50 mg PO QAM hydrocodone 10 mg-acetaminophen 325 mg tablet 1 tab PO Q6H PRN(if needed) amlodipine 5 mg tablet 5 mg PO QAM duloxetine 30 mg capsule,delayed release 30 mg PO BID ezetimibe 10 mg tablet (Zetia) 10 mg PO QAM omeprazole 40 mg capsule,delayed release 40 mg PO QAM propranolol 60 mg capsule,24 hr,extended release 60 mg PO QAM Take evening before surgery acetaminophen 500 mg capsule 1,000 mg PO BID PRN(if needed) lorazepam 1 mg tablet (Ativan) 0.5 mg PO QID PRN(if needed) ramelteon 8 mg tablet 8 mg PO HS duloxetine 60 mg capsule,delayed release (Cymbalta) 60 mg PO BID pregabalin 50 mg capsule (Lyrica) 50 mg PO TID hydrocodone 10 mg-acetaminophen 325 mg tablet 1 tab PO Q6H PRN(if needed) duloxetine 30 mg capsule,delayed release 30 mg PO BID mirtazapine 7.5 mg tablet 7.5 mg PO QPM Other Notes If you have any questions please call us at [phone] or [phone] or [phone] or [phone]
--- NOTE | 2023-04-07 08:25 | Anesthesiology Consultation ---
Date of Service April 07, 2023 History Surgery Operation Date: 04/22/23 07:45 Proposed Procedures p L1-L3 Decompression, T12-L3 Fusion, L3-L4 Hardware Removal, Spinal Cord Monitoring - Giovani Ford DO Height/Weight Height: 5 ft 3 in Weight: 99.79 kg Allergies Allergy/AdvReac Type Severity Reaction Status Date / Time carbamazepine Allergy Severe RESPIRATORY Verified 04/03/23 16:07 DISTRESS cefaclor Allergy Severe Hives Verified 04/03/23 16:07 Sulfa (Sulfonamide Allergy Severe HIVES, SOB Verified 04/03/23 16:07 Antibiotics) lovastatin Allergy Intermediate Joint Pain Verified 04/03/23 16:07 pitavastatin [From Livalo] Allergy Intermediate Joint Pain Verified 04/03/23 16:07 pravastatin Allergy Intermediate Joint Pain Verified 04/03/23 16:07 [id number] Reductase Allergy Intermediate JOINT AND Verified 04/03/23 16:07 Inhibitor MUSCLE PAIN [Irgmhcl-Kfh-Jzw Reductase Inhibitor] meloxicam AdvReac Intermediate Elevated Verified 04/03/23 16:07 transaminases prednisone AdvReac Intermediate TERRIBLE Verified 04/03/23 16:07 HEADACHE, 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 Medications Home Medications Medication Instructions Recorded Confirmed Last Taken cyanocobalamin (vitamin B-12) 1,000 mcg IM MONTHLY 05/25/19 04/03/23 Unknown 1,000 mcg/mL injection solution multivitamin 1 tab PO QAM 05/25/19 04/03/23 08/16/19 acetaminophen 500 mg capsule 1,000 mg PO BID PRN Fever Or Pain 05/26/20 04/03/23 Unknown #100 caps lorazepam 1 mg tablet (Ativan) 0.5 mg PO QID PRN Anxiety 05/10/22 04/03/23 Unknown cholecalciferol (vitamin D3) 1,250 50,000 unit PO .weekly #12 caps 08/05/22 04/03/23 Unknown mcg (50,000 unit) capsule diclofenac sodium 1 % topical gel 4 g topical QID PRN knee and 10/14/22 04/03/23 Unknown shouler pain. #500 grams nystatin 100,000 unit/gram topical 1 applic topical BID PRN Rash 11/01/22 04/03/23 Unknown powder ramelteon 8 mg tablet 8 mg PO HS 11/01/22 04/03/23 Unknown Lift Chair #1 ea 12/05/22 02/28/23 Unknown walker (Ultra-Light Rollator [facility] [place] #1 ea 12/05/22 02/28/23 Unknown magnesium chloride 1 tab PO QAM 12/06/22 04/03/23 Unknown eletriptan 40 mg tablet (Relpax) 40 mg PO DAILY PRN MIGRAINES #10 01/06/23 04/03/23 Unknown tabs ondansetron HCl 8 mg tablet 8 mg PO Q12H PRN nausea and 01/16/23 04/03/23 Unknown vomiting #60 tabs duloxetine 60 mg capsule,delayed 60 mg PO BID 01/21/23 04/03/23 Unknown release (Cymbalta) pregabalin 50 mg capsule (Lyrica) 50 mg PO TID #90 caps 01/31/23 04/03/23 Unknown furosemide 20 mg tablet (Lasix) 10 mg PO DAILY PRN weight gain #45 02/05/23 04/03/23 Unknown tabs mirabegron 50 mg tablet,extended 50 mg PO QAM 02/07/23 04/03/23 Unknown release 24 hr (Myrbetriq) denosumab 60 mg/mL subcutaneous 60 mg subcut Q6MO #1 mL 03/18/23 04/03/23 Unknown syringe (Prolia) amlodipine 5 mg tablet 5 mg PO QAM 03/27/23 04/03/23 Unknown aspirin 81 mg tablet,delayed 81 mg PO QAM 03/27/23 04/03/23 Unknown release duloxetine 30 mg capsule,delayed 30 mg PO BID 03/27/23 04/03/23 Unknown release ezetimibe 10 mg tablet (Zetia) 10 mg PO QAM 03/27/23 04/03/23 Unknown losartan 25 mg tablet 25 mg PO QAM 03/27/23 04/03/23 Unknown mirtazapine 7.5 mg tablet 7.5 mg PO QPM 03/27/23 04/03/23 Unknown omeprazole 40 mg capsule,delayed 40 mg PO QAM 03/27/23 04/03/23 Unknown release propranolol 60 mg capsule,24 60 mg PO QAM 03/27/23 04/03/23 Unknown hr,extended release peg 3350-electrolytes 236 240 ml PO Q10M #4,000 mL 03/31/23 Unknown gram-22.74 gram-6.74 gram-5.86 gram solution (GaviLyte-G) hydrocodone 10 mg-acetaminophen 1 tab PO Q6H PRN Pain #120 tabs 04/04/23 Unknown 325 mg tablet Past Medical History Medical History (Updated 04/03/23 @ 16:16 by Noemi Castro, RN) Amaurosis fugax, both eyes Anxiety and depression Aortic regurgitation Aortic stenosis Cardiac murmur Chronic low back pain Chronic narcotic use Controlled type 2 diabetes mellitus without complication diet controlled Degenerative disc disease Displaced fracture of distal end of left humerus hx Diverticular disease Dyspnea on exertion Fibromyalgia GERD (gastroesophageal reflux disease) Heart murmur History of anesthesia reaction reports [place] feeling [place] [facility] [place] "I felt like I couldn't breathe and it felt like my throat was closing." Denies need for re-intubation. History of degenerative disc disease History of syncope reason for loop recorder. follows with Dr. Mae. Hypercalcemia Hypercholesterolemia Hypertension Implantable loop recorder present Lumbar stenosis with neurogenic claudication Migraines Osteoarthritis Osteopenia Osteoporosis Postgastric surgery syndromes Silent myocardial infarction hx per pt report Urinary leakage Ventricular hypertrophy determined by echocardiography Vitamin B 12 deficiency Vitamin D deficiency Past Family History Family History Father Lung cancer Grandmother Myocardial infarction Mother Myocardial infarction Pancreatic cancer Brother Myocardial infarction Other Family hx of colon cancer Denies family history of Ovarian cancer Prostate cancer Breast cancer Past Surgical History Surgical History (Updated 04/03/23 @ 16:17 by Noemi Castro, LUIS) Difficult airway for intubation POSSIBLE -- H/O GLIDESCOPE INTUBATION 2012 [facility]. H/O cervical spine surgery NECK SPINE FUSION (CERV, BELOW C2). states ROM WNL. H/O gastric bypass History of appendectomy History of cardiac catheterization 11/2022 [facility] - no stents. History of cataract surgery History of cholecystectomy History of colonoscopy History of esophagogastroduodenoscopy (EGD) History of hysterectomy History of knee replacement Right History of lumbar surgery Fusion History of open reduction and internal fixation (ORIF) procedure LUE History of right shoulder replacement History of total shoulder replacement Left - with revision in February 2020 Status post panniculectomy Status post placement of implantable loop recorder 08/08/22 [employer] @ [facility] Social History Smoking Status: Former smoker Do You Dip or Chew Tobacco: No Smoking End Date: as a teen Hx Alcohol Use: No Hx Substance Use: No substance use type: does not use Testing Echocardiogram Date: 12/03/22 Mild AR, mild to moderate
--- NOTE | 2023-04-08 13:32 | Anesthesiology Consultation ---
Date of Service April 08, 2023 Assessment & Plan (1) Encounter for pre-operative examination: Chart Review Chart Review: Acceptable Risk for Surgery (pending cardio clearance (04/11), final PCP clearance and response re: anemia and hyperkalemia ) and Patient seen in Pre Admission Testing - Awaiting cardio clearance 04/11/23 - Awaiting final PCP clearance (note still indraft) from 04/07/23; also need workload response from PCP re: anemia and hyperkalemia - Check BSG AM DOS Per PAT appt on 04/08/23, patient denies any recent travel or large group activities. Pt is vaccinated for Covid. Will leave to surgeon's discretion if preop Covid testing needed. Educated on importance of using Covid precautions one week prior to surgery Left humerus ORIF 05/28/19= Done under [place] With LMA #4. Atraumatic placement, attempt x 1 Teaching & Discussion Pre-Anesthesia Teaching/Discussion Notes: Instructed NPO after midnight before s urgery,except medications with 15 cc of water. Medication instructions provided according to the PAT guidelines. History Surgery Operation Date: 04/22/23 07:45 Proposed Procedures p L1-L3 Decompression, T12-L3 Fusion, L3-L4 Hardware Removal, Spinal Cord Monitoring - Giovani Ford, Height/Weight Height: 5 ft 3 in Weight: 103 kg Allergies Allergy/AdvReac Type Severity Reaction Status Date / Time carbamazepine Allergy Severe RESPIRATORY Verified 04/07/23 12:45 DISTRESS cefaclor Allergy Severe Hives Verified 04/07/23 12:45 Sulfa (Sulfonamide Allergy Severe HIVES, SOB Verified 04/07/23 12:45 Antibiotics) lovastatin Allergy Intermediate Joint Pain Verified 04/07/23 12:45 pitavastatin [From Livalo] Allergy Intermediate Joint Pain Verified 04/07/23 12:45 pravastatin Allergy Intermediate Joint Pain Verified 04/07/23 12:45 Fvhqnxo-ENX-JyI Reductase Allergy Intermediate JOINT AND Verified 04/07/23 12:45 Inhibitor MUSCLE PAIN [Ebybzkk-Fad-Cir Reductase Inhibitor] meloxicam AdvReac Intermediate Elevated Verified 04/07/23 12:45 transaminases prednisone AdvReac Intermediate TERRIBLE Verified 04/07/23 12:45 HEADACHE, 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 Medications Home Medications Medication Instructions Recorded Confirmed Last Taken cyanocobalamin (vitamin B-12) 1,000 mcg IM MONTHLY 05/25/19 04/07/23 Unknown 1,000 mcg/mL injection solution multivitamin 1 tab PO QAM 05/25/19 04/07/23 08/16/19 acetaminophen 500 mg capsule 1,000 mg PO BID PRN Fever Or Pain 05/26/20 04/07/23 Unknown #100 caps lorazepam 1 mg tablet (Ativan) 0.5 mg PO QID PRN Anxiety 05/10/22 04/07/23 Unknown cholecalciferol (vitamin D3) 1,250 50,000 unit PO .weekly #12 caps 08/05/22 04/07/23 Unknown mcg (50,000 unit) capsule diclofenac sodium 1 % topical gel 4 g topical QID PRN knee and 10/14/22 04/07/23 Unknown shouler pain. #500 grams nystatin 100,000 unit/gram topical 1 applic topical BID PRN Rash 11/01/22 04/07/23 Unknown powder ramelteon 8 mg tablet 8 mg PO HS 11/01/22 04/07/23 Unknown Lift Chair #1 ea 12/05/22 04/07/23 Unknown walker (Ultra-Light Rollator [facility]) #1 ea 12/05/22 04/07/23 Unknown magnesium chloride 1 tab PO QAM 12/06/22 04/07/23 Unknown eletriptan 40 mg tablet (Relpax) 40 mg PO DAILY PRN MIGRAINES #10 01/06/23 04/07/23 Unknown tabs ondansetron HCl 8 mg tablet 8 mg PO Q12H PRN nausea and 01/16/23 04/07/23 Unknown vomiting #60 tabs duloxetine 60 mg capsule,delayed 60 mg PO BID 01/21/23 04/07/23 Unknown release (Cymbalta) pregabalin 50 mg capsule (Lyrica) 50 mg PO TID #90 caps 01/31/23 04/07/23 Unknown furosemide 20 mg tablet (Lasix) 10 mg PO DAILY PRN weight gain #45 02/05/23 04/07/23 Unknown tabs mirabegron 50 mg tablet,extended 50 mg PO QAM 02/07/23 04/07/23 Unknown release 24 hr (Myrbetriq) denosumab 60 mg/mL subcutaneous 60 mg subcut Q6MO #1 mL 03/18/23 04/07/23 Unknown syringe (Prolia) amlodipine 5 mg tablet 5 mg PO QAM 03/27/23 04/07/23 Unknown aspirin 81 mg tablet,delayed 81 mg PO QAM 03/27/23 04/07/23 Unknown release duloxetine 30 mg capsule,delayed 30 mg PO BID 03/27/23 04/07/23 Unknown release ezetimibe 10 mg tablet (Zetia) 10 mg PO QAM 03/27/23 04/07/23 Unknown losartan 25 mg tablet 25 mg PO QAM 03/27/23 04/07/23 Unknown mirtazapine 7.5 mg tablet 7.5 mg PO QPM 03/27/23 04/07/23 Unknown omeprazole 40 mg capsule,delayed 40 mg PO QAM 03/27/23 04/07/23 Unknown release propranolol 60 mg capsule,24 60 mg PO QAM 03/27/23 04/07/23 Unknown hr,extended release peg 3350-electrolytes 236 240 ml PO Q10M #4,000 mL 03/31/23 04/07/23 Unknown gram-22.74 gram-6.74 gram-5.86 gram solution (GaviLyte-G) hydrocodone 10 mg-acetaminophen 1 tab PO Q6H PRN Pain #120 tabs 04/04/23 04/07/23 Unknown 325 mg tablet Past Medical History Medical History Amaurosis fugax, both eyes No recent issues Had work up with head/neck CTA, brain MRI- no significant issues Anxiety and depression Aortic stenosis Mild aortic stenosis with mild to moderate AR per 07/2022 ECHO Chronic low back pain Chronic narcotic use Controlled type 2 diabetes mellitus without complication diet controlled Degenerative disc disease Dyspnea on exertion Fibromyalgia GERD (gastroesophageal reflux disease) Well controlled and stable History of anesthesia reaction reports woke [place] feeling sob [place] [facility]. "I felt like I couldn't breathe and it felt like my throat was closing." Denies need for re-intubation. History of syncope "drop attacks"- reason for loop recorder. follows with Dr. Mae. no recent issues Hypercholesterolemia Hyperparathyroidism following with endocrine- normacalcemic hyperparathyroidism - no surgery needed at this time Hypertension Implantable loop recorder present Lumbar stenosis with neurogenic claudication Migraines Osteoporosis Exercise / Class Metabolic Activity III < 4 Walking/Shop/Light housework (no chest pain, mild SOB with flat surface, short distance ambulation ) Past Family History Family History Father Lung cancer Grandmother Myocardial infarction Mother Myocardial infarction Pancreatic cancer Brother Myocardial infarction Other Family hx of colon cancer Denies family history of Ovarian cancer Prostate cancer Breast cancer Past Surgical History Surgical History Difficult airway for intubation POSSIBLE -- H/O GLIDESCOPE INTUBATION 2012 [facility]. H/O cervical spine surgery NECK SPINE FUSION (CERV, BELOW C2). states ROM WNL. H/O gastric bypass History of appendectomy History of cardiac catheterization 11/2022 [facility] - no stents. History of cataract surgery History of cholecystectomy History of colonoscopy History of esophagogastroduodenoscopy (EGD) History of hysterectomy History of knee replacement Right History of lumbar surgery Fusion History of open reduction and internal fixation (ORIF) procedure LUE History of right shoulder replacement History of total shoulder replacement Left - with revision in February 2020 Status post panniculectomy Status post placement of implantable loop recorder 08/08/22 [employer] @ [facility] Past Anesthesia History No Hx of Anesthesia Complications (with exception to possible difficult airway; also had SOB with most recent arm [place] [facility] [place] reint[place]- [place] remote episode- no issues with previous surgeries ) and No Family Hx of Anesthesia Complications (with exception to mother- slow to wake ) History of PONV History of PONV and Hx of Motion Sickness Social History Smoking Status: Former smoker Do You Dip or Chew Tobacco: No Smoking End Date: as a teen Hx Alcohol Use: No Hx Substance Use: No substance use type: does not use Review of Systems - Occ palpitations- ongoing x 6 months - has loop recorder in place- patient will discuss with cardio at clearance appt 04/11/23 - Hx of blood transfusion (years ago)- s/p surgery Patient denies chest pain, shortness of breath at rest, cough, wheezing. No hx of seizures, stroke, apnea/snoring. No hx of blood clots Physical Exam Vital Signs VITALS BP 112/73 P 78 TEMP 98.0 SP02 96% RESP 16 Constitutional no acute distress ENMT Mouth: no TMJ clicking Thyromental Distance: > or= 3.5 Finger Breadths (3.5) Mallampati Class: III Missing side tooth Neck + limited neck extension Respiratory normal respiratory effort; no respiratory distress Auscultation: lungs clear to auscultation bilaterally; no wheezes Cardiovascular Rate/Rhythm: regular rate and regular rhythm Heart Sounds: + murmur (II/ murmur) Vessels: no carotid bruit Musculoskeletal Spine: + pain with cervical ROM Extremities: extremities normal to inspection Psychiatric Orientation: alert Lab Results Anesthesia Preop Results Results Anesthesia Widget: WBC 5.42 K/ul (4.8-10.8) 04/08/23 Hgb 10.5 g/dl (12.0-16.0) L 04/08/23 Hct 33.0 % (37.0-47.0) L 04/08/23 Plt 328 K/uL (130-400) 04/08/23 Na 139 mmol/L (136-145) 04/08/23 K 5.2 mmol/L (3.5-5.1) H 04/08/23 Cl 109 mmol/L (98-107) H 04/08/23 CO2 26 mmol/L (21-32) 04/08/23 BUN 23 mg/dl (6-23) 04/08/23 Creat 1.04 mg/dl (0.6-1.2) 04/08/23 Glucose Level 105 mg/dl (70-99(Fasting)) H 04/08/23 PT 10.2 Seconds (9.0-12.0) 04/08/23 PTT 24.3 Seconds (21.0-31.0) 04/08/23 INR 0.9 (0.9-1.1) 04/08/23 HA1c 6.0 % (4.5-5.6) H 04/08/23 Urine Color Yellow 04/08/23 Urine Appearance Clear (Clear) 04/08/23 Urine pH 5.0 (4.5-7.5) 04/08/23 Urine Specific Gaastra 1.027 (1.000-1.030) 04/08/23 Urine Protein Negative (Negative) 04/08/23 Urine Glucose (UA) Negative (Negative) 04/08/23 Urine Ketones Trace (Negative) H 04/08/23 Urine Blood Negative (Negative) 04/08/23 Urine Nitrite Negative (Negative) 04/08/23 Urine Bilirubin Negative (Negative) 04/08/23 Urine Urobilinogen Negative (Negative) 04/08/23 Urine Leukocyte Esterase Negative (Negative) 04/08/23 Blood Type B Positive 04/08/23 Antibody Screen NEGATIVE 04/08/23 Testing Laboratory Results Anemia - workload note sent to PCP Hyperkalemia - workload note sent to PCP Electrocardiogram Date: 04/08/23 Findings: + NSR @ (73bpm ) Left axis deviation Chest X-Ray Date: 04/08/23 FINDINGS: Loop recorder is seen. Bilateral shoulder arthroplasty is seen. Calcified aortic knob is seen. The lungs are clear. No evidence of pleural effusion or pneumothorax. Degenerative changes are seen in thoracic spine. Incidental note is made of eventration of the right hemidiaphragm. IMPRESSION: No acute chest disease. Echocardiogram Date: 08/02/22 EF: 55 to 60% LV Function: normal RWMA: + none Other Findings: + LVH (Moderate/concentric) and + diastolic dysfunction (Grade 1) Mild aortic stenosis mild to moderate regurgitation Mild MR Moderate mitral annular calcification Insufficient TR detected to calculate RV systolic pressure No significant change from prior study on 02/20/2021 Stress Test Date: 08/01/22 Rest and stress hemodynamic and electrocardiographic findings: Baseline heart rate 64 bpm increased to 94 bpm with pharmacologic stress. Baseline blood pressure 201/105 mmHg changed to 171/77 mmHg during pharmacologic stress. Baseline EKG demonstrated normal sinus rhythm, left axis deviation, borderline voltage criteria for LVH, and single isolated PVC. There were no diagnostic ST changes with pharmacologic stress. There was no arrhythmia associated with pharmacologic stress. Rest and stress myocardial perfusion imaging findings: 1. Patient was imaged with both arms down. There was mild breast attenuation shadow and additional soft tissue attenuation from obesity (BMI 40.7). Study was considered adequate for interpretation with some technical limitations. 2. Gated MPI demonstrates mild inferolateral hypokinesis. EF is preserved at 67%. 3. There is a medium to large in size, mild intensity, mostly fixed MPI defect of the inferior, distal inferior lateral, and inferoapical myocardium. These findings are consistent with infarct and mild mick-infarct ischemia plus or minus artifact. 4. Moderately abnormal study with mild risk of ischemia. No prior studies for comparison. Consider coronary angiography for definitive evaluation as clinically indicated. (Pt had subsequent cath) Cardiac Catheterization Date: 12/09/22 Impression: 1. No significant CAD; luminal irregularities within the LAD and circumflex. 2. Mild aortic stenosis. 3. Mildly elevated left-sided filling pressure. Other Testing Loop recorder check 12/28/2022 = Battery life good. For symptom episodes which did not correlate with arrhythmia. One tacky episode which correlated with T wave oversensing. No true arrhythmias Cardiac MRI 12/03/2022 = normal LV chamber size, regional wall motion and systolic function; LVEF 66%. No systolic anterior motion of the mitral valve. Mildly increased basal interventricular septal wall thickness measuring 12.9 mm. Mi ldly increased absolute LV mass is within expected parameters which indexed to body surface area. High normal RV chamber size with normal RV systolic function; RVEF 62%. Mildly dilated right atrium. Mild MR. Mild TR. Global gakona T1 time is within normal reported values. Normal resting first-pass perfusion. No evidence for intraventricular shunt. Focal transmural LGE in the mid symptom. Neck CTA 07/29/22= No significant stenosis, occlusion, or dissection identified within the carotid or vertebral arteries. Pulmonary arterial hypertension. Head CTA 07/29/22= No acute intracranial findings. No intracranial aneurysm or central vessel occlusion. Mild plaque within bilateral cavernous carotids without stenosis. Brain MRI 06/21/22= No acute intracranial abnormality. COVID-19 Risk Screen Screening Information COVID-19 Screen Date: 04/08/23 Exposure 21 Days Family/Household +COVID Last 21 Days: No Exposure 10 Days Any COVID Exposure Last 10 Days: No Symptoms Last 10 Days Experienced COVID Sx Last 10 Days: No + COVID 0-90 Days COVID + in Last 0-90 Days: No Risk Plan COVID Risk Plan: No Risk Identified Patient Education COVID Preop Screening Education Complete: Yes
[~2023-04-22 06:06] MED LIST changes: +ACETAMINOPHEN 500 MG TAB PO SCH; +ALLERGY Noted to ORDERED Medication SCH; -BUPIVACAINE/EPINEPHRINE 0.25% 1:200,000 30 ML VIAL ONE; -CEFAZOLIN 2000MG 2,000 MG/15 ML SYR IV SCH; +CLINDA 900 MG **Premixed Bag IV SCH; +CeleBREX 200 MG CAP PO SCH; -DEXAMETHASONE SOD INJ 4 MG/ML VIAL ONE; +GABAPENTIN 300 MG CAP PO SCH; -LACTATED RINGER'S 1,000 ML IV SCH; +LR 15ML/HR IV SCH
[2023-04-22] MEDS ORDERED: LIDOCAINE 2% 2 ML VIAL/AMP(20MG/ML) INFIL ONE (07:11)
[2023-04-22] MEDS ORDERED: MIDAZOLAM HCL 1 MG/ML 2ML VIAL ONE (07:11)
[2023-04-22] MEDS ORDERED: ONDANSETRON INJ 2 MG/ML 2 ML VIAL ONE (07:11)
[2023-04-22] MEDS ORDERED: PROPOFOL IV EMULSION 10 MG/ML 20 ML VIAL IV ONE (07:11)
[2023-04-22] MEDS ORDERED: DEXAMETHASONE SOD INJ 4 MG/ML VIAL ONE ×2 (07:11→08:34)
[2023-04-22] MEDS ORDERED: ROCURONIUM BROMIDE 10 MG/ML 5 ML VIAL IV ONE ×6 (07:11→09:33)
[2023-04-22] MEDS ORDERED: fentaNYL citrate PF 100 MCG/2 ML VIAL ONE (07:12)
[2023-04-22] MEDS ORDERED: BUPIVACAINE/EPINEPHRINE 0.25% 1:200,000 30 ML VIAL ONE (07:32)
[2023-04-22] MEDS ORDERED: ceFAZolin 330 MG/ML 1 GM VIAL ONE (07:32)
[2023-04-22] MEDS ORDERED: ATROPINE SULFATE 0.1 MG/ML 10ML SYR IV PRN (07:39)
[2023-04-22] MEDS ORDERED: ePHEDrine sulfate 50 MG/ML AMP IV PRN (07:39)
[2023-04-22] MEDS ORDERED: HYDROmorphone INJ 1 MG/ML SYRINGE IV PRN (07:39)
[2023-04-22] MEDS ORDERED: ONDANSETRON INJ 2 MG/ML 2 ML VIAL IV PRN ×2 (07:39→12:13)
--- NOTE | 2023-04-22 07:41 | History & Physical Bridge Note ---
Date of Service April 22, 2023 History & Physical Bridge Note I have examined the patient, reviewed the History & Physical and in the interval since the performance of the History & Physical I have noted the following changes of clinical significance: no changes noted
--- NOTE | 2023-04-22 07:43 | History & Physical Report ---
Date of Service April 22, 2023 Assessment & Plan (1) Neurogenic claudication due to lumbar spinal stenosis: Plan: L1-L3 decompression, T12-L3 fusion, L3-L4 hardware removal History of Present Illness Chief Complaint: Back and leg pain Primary Care Provider: Rodrigue Patel MD Patient is a 73-year-old female who presents with chronic persistent back and leg pain after failing since course of nonoperative care she is here for surgical invention. Allergies Allergy/AdvReac Type Severity Reaction Status Date / Time carbamazepine Allergy Severe RESPIRATORY Verified 04/22/23 06:51 DISTRESS cefaclor Allergy Severe Hives Verified 04/22/23 06:51 Sulfa (Sulfonamide Allergy Severe HIVES, SOB Verified 04/22/23 06:51 Antibiotics) lovastatin Allergy Intermediate Joint Pain Verified 04/22/23 06:51 pitavastatin [From Livalo] Allergy Intermediate Joint Pain Verified 04/22/23 06:51 pravastatin Allergy Intermediate Joint Pain Verified 04/22/23 06:51 Cljodwj-AFP-LwN Reductase Allergy Intermediate JOINT AND Verified 04/22/23 06:51 Inhibitor MUSCLE PAIN [Aooavkq-Aqe-Acv Reductase Inhibitor] meloxicam AdvReac Intermediate Elevated Verified 04/22/23 06:51 transaminases prednisone AdvReac Intermediate TERRIBLE Verified 04/22/23 06:51 HEADACHE, 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 gabapentin AdvReac Mild dizziness, Verified 04/22/23 06:53 light headed, unsteady Home Medications Medication Instructions Recorded Confirmed Type cyanocobalamin (vitamin B-12) 1,000 mcg IM MONTHLY 05/25/19 04/22/23 History 1,000 mcg/mL injection solution multivitamin 1 tab PO QAM 05/25/19 04/22/23 History acetaminophen 500 mg capsule 1,000 mg PO BID PRN Fever Or Pain 05/26/20 04/22/23 Rx #100 caps lorazepam 1 mg tablet (Ativan) 0.5 mg PO QID PRN Anxiety 05/10/22 04/22/23 History cholecalciferol (vitamin D3) 1,250 50,000 unit PO .weekly #12 caps 08/05/22 04/22/23 Rx mcg (50,000 unit) capsule diclofenac sodium 1 % topical gel 4 g topical QID PRN knee and 10/14/22 04/22/23 Rx shouler pain. #500 grams nystatin 100,000 unit/gram topical 1 applic topical BID PRN Rash 11/01/22 04/22/23 History powder ramelteon 8 mg tablet (Rozerem) 8 mg PO HS 11/01/22 04/22/23 History Lift Chair #1 ea 12/05/22 04/07/23 Rx walker (Ultra-Light Rollator misc) #1 ea 12/05/22 04/07/23 Rx magnesium chloride 1 tab PO QAM 12/06/22 04/22/23 History eletriptan 40 mg tablet (Relpax) 40 mg PO DAILY PRN MIGRAINES #10 01/06/23 04/22/23 Rx tabs ondansetron HCl 8 mg tablet 8 mg PO Q12H PRN nausea and 01/16/23 04/22/23 Rx vomiting #60 tabs duloxetine 60 mg capsule,delayed 60 mg PO BID 01/21/23 04/22/23 History release (Cymbalta) pregabalin 50 mg capsule (Lyrica) 50 mg PO TID #90 caps 01/31/23 04/22/23 Rx furosemide 20 mg tablet (Lasix) 10 mg PO DAILY PRN weight gain #45 02/05/23 04/22/23 Rx tabs mirabegron 50 mg tablet,extended 50 mg PO QAM 02/07/23 04/22/23 History release 24 hr (Myrbetriq) denosumab 60 mg/mL subcutaneous 60 mg subcut Q6MO #1 mL 03/18/23 04/22/23 Rx syringe (Prolia) amlodipine 5 mg tablet 5 mg PO QAM 03/27/23 04/22/23 History aspirin 81 mg tablet,delayed 81 mg PO QAM 03/27/23 04/22/23 History release duloxetine 30 mg capsule,delayed 30 mg PO BID 03/27/23 04/22/23 History release ezetimibe 10 mg tablet (Zetia) 10 mg PO QAM 03/27/23 04/22/23 History losartan 25 mg tablet 25 mg PO QAM 03/27/23 04/22/23 History mirtazapine 7.5 mg tablet 7.5 mg PO QPM 03/27/23 04/22/23 History omeprazole 40 mg capsule,delayed 40 mg PO QAM 03/27/23 04/22/23 History release propranolol 60 mg capsule,24 60 mg PO QAM 03/27/23 04/22/23 History hr,extended release hydrocodone 10 mg-acetaminophen 1 tab PO Q6H PRN Pain #120 tabs 04/04/23 04/22/23 Rx 325 mg tablet ferrous gluconate 324 mg (37.5 mg 324 mg PO DAILY #30 tabs 04/14/23 04/22/23 Rx iron) tablet Past Med/Surg History Medical History Amaurosis fugax, both eyes No recent issues Had work up with head/neck CTA, brain MRI- no significant issues Anemia Anxiety and depression Aortic stenosis Mild aortic stenosis with mild to moderate AR per 07/2022 ECHO Chronic low back pain Chronic narcotic use Controlled type 2 diabetes mellitus without complication diet controlled Degenerative disc disease Dyspnea on exertion Fibromyalgia GERD (gastroesophageal reflux disease) Well controlled and stable History of anesthesia reaction reports woke up feeling sob after ORIF LUE at [facility] [place] approx 2 years ago. "I felt like I couldn't breathe and it felt like my throat was closing." Denies need for re-intubation. History of syncope "drop attacks"- reason for loop recorder. follows with Dr. Mae. no recent issues Hypercholesterolemia Hyperkalemia Hyperparathyroidism following with endocrine- normacalcemic hyperparathyroidism - no surgery needed at this time Hypertension Implantable loop recorder present Lumbar stenosis with neurogenic claudication Migraines Osteoporosis Surgical History Difficult airway for intubation POSSIBLE -- H/O GLIDESCOPE INTUBATION 2012. H/O cervical spine surgery NECK SPINE FUSION (CERV, BELOW C2). states ROM WNL. H/O gastric bypass History of appendectomy History of cardiac catheterization 11/2022 [facility] - no stents. History of cataract surgery History of cholecystectomy History of colonoscopy History of esophagogastroduodenoscopy (EGD) History of hysterectomy History of knee replacement Right History of lumbar surgery Fusion History of open reduction and internal fixation (ORIF) procedure LUE History of right shoulder replacement History of total shoulder replacement Left - with revision in February 2020 Status post panniculectomy Status post placement of implantable loop recorder 08/08/22 [employer] @ [facility] Family History Father Lung cancer Grandmother Myocardial infarction Mother Myocardial infarction Pancreatic cancer Brother Myocardial infarction Other Family hx of colon cancer Denies family history of Ovarian cancer Prostate cancer Breast cancer Social History Smoking Status: Former smoker Smoking End Date: as a teen; Second Hand Exposure: Yes; Do You Dip or Chew Tobacco: No; Tobacco Cessation Education Requested by Patient: No Hx Alcohol Use: No Hx Substance Use: No Preferred Language: Bulgarian Communication Ability: Effective Security Operations Analyst Required: No Beliefs That Will Affect Care: None marital status: Single Current Living Situation: Alone Current Living Situation Comment: [facility] current occupational status: retired Feels Safe at Home: Yes Safety Concerns: Feels Safe At This Time Seatbelt Use: always Assistive Devices: Cane, Glasses and Walker Physical Exam Physical Exam: Patient is alert and oriented Heart regular rhythm Lungs clear Results & Data Results & Data Vital Signs (Past 12 Hours) Vital Signs Temp Pulse Resp BP Pulse Ox O2 Del Method 04/22/23 07:04 36.7 C 61 20 123/59 L 95 Room Air
[2023-04-22] MEDS ORDERED: FLOSEAL HEMOSTATIC MATRIX 10ML TOP ONE (08:56)
[2023-04-22] MEDS ORDERED: GLYCOPYRROLATE 0.2 MG/ML VIAL ONE ×2 (09:34→10:05)
[2023-04-22] MEDS ORDERED: NEOSTIGMINE METHYLSULFATE 1 MG/ML 10ML VIAL ONE (10:05)
--- NOTE | 2023-04-22 10:19 | Operative Report ---
Post Operative Report Pre & Post Diagnosis Operation Date: 04/22/23 07:45 Pre-Op Diagnosis: Neurogenic Claudication due to Lumbar Spinal Stenosis T12-L3, Previous Fusion L3-L4 Post-Op Diagnosis: Neurogenic Claudication due to Lumbar Spinal Stenosis T12-L3, Previous Fusion L 3-L4 I identified the patient and participated in the time-out.: Yes Procedure Operation Date: 04/22/23 07:45 Actual Procedures 1. Removal of posterior instrumentation L3-L4. #2 exploration of fusion L3-L4. #3 lumbar decompression bilateral medial facetectomies and foraminotomies T12- L1, L1-L2 and L2-L3. #4 posterior spinal fusion T12-L3. #5 placement posterior segmental instrumentation T12-L4. #6 interbody fusion L2-L3. #7 placement of Spira 9 x 26 mm cage at L2-L3. #8 placement locally harvested morselized autograft in the posterior gutters. #9 placement of I factor in the interbody space and infuse collagen sponge, master graft in the posterior lateral gutters. Surgeon Giovani Ford, DO Chemical Operator Pauly Thomas Estimated Blood Loss 150 Findings See Below The patient is 5 foot 3 weighing over 101 kg with a BMI in excess of 39. Patient's body habitus did contribute to significant technical difficulty requiring her deeper retractors longer instruments in order to perform her procedure. This at least 50% increased operative time. Specimens none Indications This is a 73-year-old female well-known to me the presents above-mentioned diagnosis and failing course of nonoperative care she is here for surgical in [facility]. Description of Procedure Patient was met with identified informed consent obtained. Patient was then taken to the operative suite underwent a patient placed in a prone position on the [facility] frame. All bony promises well-padded eyes inspected to ensure no external pressure placed upon the. This point lumbar spine was prepped and draped in a sterile fashion. Sharp dissection with the assistance of Bovie cautery to form down to and exposing the lamina transverse processes of T12 L1-L2 and instrumentation at L3-L4 bilaterally. I then proceeded to move the hardware bilaterally explore the fusion mass noting it to be mature and intact. Informed complete laminectomy of all 2 L1 and partial laminectomy of T12 including bilateral medial facetectomies and foraminotomies addressing severe spinal stenosis. Pedicle screws were then placed in T12 L1-L2 L3-L4 bilaterally with the assistance of fluoroscopy and properly sized freeman contoured and placed. Bilateral transforaminal approach and right complete discectomy of L2-L3 was performed endplates corrected to subcortical any bone and a 9 x 26 mm Spira cage filled with I factor tapped in position. The rods were then locked into final position bilaterally. The transverse processes of T12 L1-L2-L3 burred to subcortical bleeding bone. Infuse collagen sponge from mass graft locally harvested morselized autograft was placed in the posterior gutters. 15 round KAYLEY drain inserted. The incision was then closed with 1 Vicryl the fascia 2-0 Vicryl subcutaneously and 4 Monocryl for final skin closure. Steri-Strips sterile dressing placed. Patient waken taken to PACU in stable condition. Please note spinal cord monitoring was utilized at the procedure no changes noted. Lastly Pauly Thomas was present at the entire procedure and all the patient positioning complex portion of the surgery and final skin closure. I attest to the content of the Intraoperative Record and any orders documented therein. Any exceptions are noted below.
--- NOTE | 2023-04-22 10:49 | Fluoroscopy Report ---
FL lumbar spine 2-3V CLINICAL HISTORY: L1-L3 DECOMPRESSION T12-L3 FUSION L3-L4 HW REMOVAL COMPARISON STUDY: Lumbar spine radiographs May 10, 2021. Lumbar spine MRI March 13, 2023. FLUOROSCOPY TIME: 29 seconds. Ka, r: 34.60 mGy FLUOROSCOPIC IMAGES: 2 FINDINGS: Fluoroscopy was provided during removal of the L3-L4 hardware and subsequent multilevel pos terior decompression with interbody spacer placement at the L2-L3 level. Previous L3-L4 discectomy is noted. Bilateral pedicle screw fusion from T12 through L4 is noted. There are interconnecting rods. Hardware is intact. IMPRESSION: Fluoroscopy provided during hardware removal, L2-L3 discectomy, posterior decompression and T12-L4 pedicle screw fusion. ACT 112: Negative or not required by law. Electronically signed by: Stan Ybarra M.D. 04/22/2023 10:48 AM
[2023-04-22] MEDS: fentaNYL citrate PF 100 MCG/2 ML VIAL IV PRN ×2 (11:02→11:20)
[2023-04-22] MEDS ORDERED: bisacodyL 10 MG SUPP PR PRN (12:13)
[2023-04-22] MEDS ORDERED: ALUMINUM/MAGNESIUM SUSP 30 ML UDC PO PRN (12:13)
[2023-04-22] MEDS ORDERED: PROMETHAZINE HCL 12.5 MG in SODIUM CHLORIDE 0.9% 50 ML IV PRN (12:13)
[2023-04-22] MEDS ORDERED: HYDROmorphone INJ 0.5 MG/0.5 ML SYR IV PRN (12:13)
[2023-04-22] MEDS ORDERED: METOCLOPRAMIDE HCL INJ 5 MG/ML 2 ML VIAL IV PRN (12:13)
[2023-04-22] MEDS ORDERED: hydrOXYzine HCl 25 MG TAB PO PRN (12:13)
[2023-04-22] MEDS ORDERED: CYANOCOBALAMIN 1000 MCG/ML VIAL IM SCH (12:13)
[2023-04-22] MEDS ORDERED: SOD PHOSPHATE/SOD BIPHOSPHATE ENEMA 132 ML BTL PR PRN (12:13)
[2023-04-22] MEDS ORDERED: ACETAMINOPHEN 1,000 MG/100 ML VIAL IV PRN (12:13)
[2023-04-22] MEDS ORDERED: DO NOT ADMINISTER FLU VACCINE PRN (12:13)
[2023-04-22] MEDS ORDERED: FAMOTIDINE 20 MG TAB PO PRN (12:13)
[2023-04-22] MEDS ORDERED: ACETAMINOPHEN 500 MG TAB PO PRN (12:13)
[2023-04-22] MEDS ORDERED: ONDANSETRON 4 MG OD TAB PO PRN (12:13)
[2023-04-22] MEDS ORDERED: MAGNESIUM HYDROXIDE SUSP 30 ML UDC PO PRN (12:13)
[2023-04-22] MEDS ORDERED: DO NOT ADMINISTER PNEUMOCOCCAL VACCINE PRN (12:13)
[2023-04-22] MEDS ORDERED: LORazepam 0.5 MG TAB PO PRN (12:13)
[2023-04-22] MEDS ORDERED: diphenhydrAMINE Capsule 25 MG CAP PO PRN (12:13)
[2023-04-22] MEDS ORDERED: NALOXONE HCL 0.4 MG/1 ML VIAL/CARP IV PRN (12:13)
[2023-04-22] MEDS ORDERED: LORazepam 2 MG/1 ML VIAL IV PRN (12:13)
[2023-04-22] MEDS: SODIUM CHLORIDE 0.9% 1000ML 1,000 ML IV SCH ×2 (12:40→19:45)
--- NOTE | 2023-04-22 12:42 | Anesthesiology Progress Note ---
Date of Service April 22, 2023 Anesthesia Post Procedure Vital Signs Vital Signs: Temp Pulse Pulse Resp BP Pulse Ox O2 Del Method 04/22/23 11:50 36.4 C L 57 L 12 125/74 96 Nasal Cannula 04/22/23 11:40 61 12 123/78 94 Nasal Cannula 04/22/23 11:30 57 L 12 113/80 96 Oxymask 04/22/23 11:20 53 L 12 124/72 97 Oxymask 04/22/23 11:10 56 L 14 117/67 96 Oxymask 04/22/23 11:00 57 L 14 115/69 99 Oxymask 04/22/23 10:50 58 L 16 119/65 98 Oxymask 04/22/23 10:40 36 C L 66 16 100/43 L 98 Oxymask 04/22/23 07:04 36.7 C 61 20 123/59 L 95 Room Air O2 Flow Rate 04/22/23 11:50 3 04/22/23 11:40 3 04/22/23 11:30 4 04/22/23 11:20 6 04/22/23 11:10 6 04/22/23 11:00 10 04/22/23 10:50 10 04/22/23 10:40 10 04/22/23 07:04 Pain Intensity Right Shoulder: Pain Intensity: 5 Back: Pain Intensity: 7 Bilateral Knee: Pain Intensity: 5 Transfer of Care Handoff Completed per policy Notes Mental Status: alert / awake / arousable and participated in evaluation Patient Amnestic to Procedure: Yes Nausea / Vomiting: adequately controlled Pain: adequately controlled Airway Patency, RR, SpO2: stable & adequate BP & HR: stable & adequate Hydration State: stable & adequate Anesthetic Complications: no major complications apparent and Pt Satisfied with anesthetic care
[2023-04-22] MEDS: PREGABALIN 50 MG CAP PO SCH ×2 (13:19→20:16)
[2023-04-22] MEDS: HYDROmorphone INJ 1 MG/ML SYRINGE IV PRN ×2 (13:59→20:16)
[2023-04-22] MEDS: RAMELTEON: ORDER AWAITING ACTION SCH (15:01)
[2023-04-22] MEDS: CLINDAMYCIN/D5W 600 MG/50 ML BAG IV SCH (16:12)
[2023-04-22] MEDS: DULoxetine HCL 30 MG CAP PO SCH (20:14)
[2023-04-22] MEDS: DOCUSATE SODIUM/SENNA 50/8.6MG TAB PO SCH (20:14)
[2023-04-22] MEDS: DULoxetine HCL 60 MG CAP PO SCH (20:15)
[2023-04-22] MEDS: MIRTAZAPINE TAB 15 MG TAB PO SCH (20:15)
[2023-04-23] MEDS: CLINDAMYCIN/D5W 600 MG/50 ML BAG IV SCH (00:28)
[2023-04-23] MEDS: RAMELTEON: ORDER AWAITING ACTION SCH ×3 (00:29→15:04)
[2023-04-23] MEDS: SODIUM CHLORIDE 0.9% 1000ML 1,000 ML IV SCH (02:33)
[2023-04-23] MEDS: oxyCODONE HCL IR 5 MG TAB (IMMEDIATE RELEASE) PO PRN ×5 (03:16→20:45)
[2023-04-23] MEDS: POLYETHYLENE (MIRALAX) 17 GM PACK PO SCH ×3 (06:10→17:28)
[2023-04-23] MEDS: dexAMETHasone 6 MG in SYRINGE 0 ML IV SCH (07:45)
[2023-04-23 07:53] LABS: Basophils # (auto) 0.02 K/uL (0-0.2); Basophils % (auto) 0.3 %; Eosinophils # (auto) 0.01 K/uL (0-0.50); Eosinophils % (auto) 0.2 %; Hematocrit (blood only) 30.5 % (37.0-47.0); Hemoglobin 9.4 g/dl (12.0-16.0); Immature Granulocytes # (auto) 0.02 K/uL (0.01-0.20); Immature Granulocytes % (auto) 0.3 %; Lymphocytes # (auto) 1.03 K/uL (1.2-3.4); Lymphocytes % (auto) 15.5 %; Mean Corpuscular Hemoglobin 29.6 pg (25.0-34.0); Mean Corpuscular Hgb Conc 30.8 g/dL (32.0-36.0); Mean Corpuscular Volume 95.9 fL (80.0-100.0); Mean Platelet Volume 10.1 fL (9.4-12.4); Monocytes % (auto) 10.5 %; Neutrophils # (auto) 4.88 K/uL (1.40-6.50); Neutrophils % (auto) 73.2 %; Platelet Count 337 K/uL (130-400); RDW Coefficient of Variation 14.3 % (11.5-14.5); RDW Standard Deviation 50.6 fL (36.4-46.3); Red Blood Count 3.18 M/uL (4.20-5.40); White Blood Count 6.66 K/ul (4.8-10.8)
[2023-04-23 08:15] LABS: BUN Creatinine Ratio 23.2 (10-20); Calcium 7.8 mg/dl (8.6-10.3); Est GFR (African American) 69.4 ml/min; Est GFR (Non-African American) 59.8 ml/min; Potassium 4.9 mmol/L (3.5-5.1)
--- NOTE | 2023-04-23 08:34 | Orthopedic Progress Note ---
Date of Service April 23, 2023 Assessment & Plan (1) Neurogenic claudication due to lumbar spinal stenosis: Plan: Avelina is postoperative day 1 status post hard removal L2-3, decompression instrumented fusion T12-L3. She will start physical therapy today. Maintain KAYLEY drain and dressing. Continue with aggressive bowel regimen. DVT prophylaxis in the form teds and SCDs. Continue with pain control. Admission and Anticipated Discharge Date Admission Date: April 22, 2023 Subjective Kailee eis postoperative day 1 status post hard removal of L2-3, decompression instrumented fusion T10 12 to L3. Only complaint is some abdominal cramping. She is passing flatus. Leg symptoms greatly improved. KAYLEY drain output last shift was 70 cc. Review of Systems Review of Systems: All systems reviewed & are unremarkable except as noted in HPI & below Physical Exam Physical Exam: Alert and oriented times No acute distress Abdomen is soft Lumbar dressing is clean dry and intact with functioning KAYLEY drain Calf soft nontender bilateral Strength intact bilateral lower extremities Results & Data Vital Signs (Past 12 Hours) Vital Signs Temp Pulse Pulse Resp BP BP Pulse Ox 04/23/23 07:33 36.2 C L 83 14 137/79 100 04/23/23 02:28 36.7 C 71 16 127/76 95 04/22/23 22:25 36.5 C 69 16 107/66 98 O2 Del Method O2 Flow Rate 04/23/23 07:33 Nasal Cannula 04/23/23 02:28 Nasal Cannula 2.0 04/22/23 22:25 Nasal Cannula 2.0
[2023-04-23] MEDS: FERROUS GLUCONATE 324 MG TAB PO SCH (08:55)
[2023-04-23] MEDS: MULTIVITAMIN TAB PO SCH (08:55)
[2023-04-23] MEDS: ASPIRIN 81 MG ECTAB PO SCH (08:55)
[2023-04-23] MEDS: PROPRANOLOL HCL 60 MG LA CAP PO SCH (08:55)
[2023-04-23] MEDS: DULoxetine HCL 60 MG CAP PO SCH ×2 (08:55→20:39)
[2023-04-23] MEDS: EZETIMIBE 10 MG TABLET PO SCH (08:55)
[2023-04-23] MEDS: VIBEGRON 75 MG TAB PO SCH (08:55)
[2023-04-23] MEDS: DULoxetine HCL 30 MG CAP PO SCH ×2 (08:55→20:41)
[2023-04-23] MEDS: PANTOprazole 40 MG TAB PO SCH (08:57)
[2023-04-23] MEDS ORDERED: MAGNESIUM CHLORIDE PO SCH (09:00)
[2023-04-23] MEDS: PREGABALIN 50 MG CAP PO SCH ×3 (09:00→20:44)
[2023-04-23] MEDS: amLODIPine BESYLATE 5 MG TAB PO SCH (10:02)
[2023-04-23] MEDS: LOSARTAN POTASSIUM 25 MG TAB PO SCH (10:02)
[2023-04-23] MEDS: traMADol HCL 50 MG TABLET PO PRN ×2 (10:14→18:24)
--- NOTE | 2023-04-23 12:42 | Hospitalist Consultation ---
Date of Consultation April 23, 2023 Assessment & Plan (1) Neurogenic claudication due to lumbar spinal stenosis: Patient underwent repeat lumbar surgery yesterday, April 22. Postoperative day #1. Orthopedic management. Pain control measures (2) Anemia: Mild acute blood loss anemia postoperatively. Serial labs. No transfusion needed at this time (3) Type 2 diabetes mellitus: ADA diet. Sliding scale coverage. (4) Hypercholesterolemia: Stable. Continue Zetia therapy (5) Hypertension: Stable. Continue amlodipine, losartan, propranolol Plan Discharge arrangements per primary service History of Present Illness Reason for Consultation: Medical management Requesting Physician: Dr. Cb Ford Attending Physician: Giovani Ford, DO History of Present Illness 73-year-old female who underwent redo lumbar spine surgery yesterday. Postoperative day #1. She has a history of essential hypertension, type 2 diabetes, and depression. Blood pressure is stable and heart rate is controlled. Glucose 155 this morning. She also appears to have mild acute blood loss anemia postoperatively. This will be followed. Allergies Allergy/AdvReac Type Severity Reaction Status Date / Time carbamazepine Allergy Severe RESPIRATORY Verified 04/22/23 06:51 DISTRESS cefaclor Allergy Severe Hives Verified 04/22/23 06:51 Sulfa (Sulfonamide Allergy Severe HIVES, SOB Verified 04/22/23 06:51 Antibiotics) lovastatin Allergy Intermediate Joint Pain Verified 04/22/23 06:51 pitavastatin [From Livalo] Allergy Intermediate Joint Pain Verified 04/22/23 06:51 pravastatin Allergy Intermediate Joint Pain Verified 04/22/23 06:51 Tnzfeck-CXU-OsD Reductase Allergy Intermediate JOINT AND Verified 04/22/23 06:51 Inhibitor MUSCLE PAIN [Srjtvww-Ztr-Cjx Reductase Inhibitor] meloxicam AdvReac Intermediate Elevated Verified 04/22/23 06:51 transaminases prednisone AdvReac Intermediate TERRIBLE Verified 04/22/23 06:51 HEADACHE, 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 gabapentin AdvReac Mild dizziness, Verified 04/22/23 06:53 light headed, unsteady Home Medications Medication Instructions Recorded Confirmed Type cyanocobalamin (vitamin B-12) 1,000 mcg IM MONTHLY 05/25/19 04/22/23 History 1,000 mcg/mL injection solution multivitamin 1 tab PO QAM 05/25/19 04/22/23 History acetaminophen 500 mg capsule 1,000 mg PO BID PRN Fever Or Pain 05/26/20 04/22/23 Rx #100 caps lorazepam 1 mg tablet (Ativan) 0.5 mg PO QID PRN Anxiety 05/10/22 04/22/23 History cholecalciferol (vitamin D3) 1,250 50,000 unit PO .weekly #12 caps 08/05/22 04/22/23 Rx mcg (50,000 unit) capsule diclofenac sodium 1 % topical gel 4 g topical QID PRN knee and 10/14/22 04/22/23 Rx shouler pain. #500 grams nystatin 100,000 unit/gram topical 1 applic topical BID PRN Rash 11/01/22 04/22/23 History powder ramelteon 8 mg tablet (Rozerem) 8 mg PO HS 11/01/22 04/22/23 History Lift Chair #1 ea 12/05/22 04/07/23 Rx walker (Ultra-Light Rollator misc) #1 ea 12/05/22 04/07/23 Rx magnesium chloride 1 tab PO QAM 12/06/22 04/22/23 History eletriptan 40 mg tablet (Relpax) 40 mg PO DAILY PRN MIGRAINES #10 01/06/23 04/22/23 Rx tabs ondansetron HCl 8 mg tablet 8 mg PO Q12H PRN nausea and 01/16/23 04/22/23 Rx vomiting #60 tabs duloxetine 60 mg capsule,delayed 60 mg PO BID 01/21/23 04/22/23 History release (Cymbalta) pregabalin 50 mg capsule (Lyrica) 50 mg PO TID #90 caps 01/31/23 04/22/23 Rx furosemide 20 mg tablet (Lasix) 10 mg PO DAILY PRN weight gain #45 02/05/23 04/22/23 Rx tabs mirabegron 50 mg tablet,extended 50 mg PO QAM 02/07/23 04/22/23 History release 24 hr (Myrbetriq) denosumab 60 mg/mL subcutaneous 60 mg subcut Q6MO #1 mL 03/18/23 04/22/23 Rx syringe (Prolia) amlodipine 5 mg tablet 5 mg PO QAM 03/27/23 04/22/23 History aspirin 81 mg tablet,delayed 81 mg PO QAM 03/27/23 04/22/23 History release duloxetine 30 mg capsule,delayed 30 mg PO BID 03/27/23 04/22/23 History release ezetimibe 10 mg tablet (Zetia) 10 mg PO QAM 03/27/23 04/22/23 History losartan 25 mg tablet 25 mg PO QAM 03/27/23 04/22/23 History mirtazapine 7.5 mg tablet 7.5 mg PO QPM 03/27/23 04/22/23 History omeprazole 40 mg capsule,delayed 40 mg PO QAM 03/27/23 04/22/23 History release propranolol 60 mg capsule,24 60 mg PO QAM 03/27/23 04/22/23 History hr,extended release hydrocodone 10 mg-acetaminophen 1 tab PO Q6H PRN Pain #120 tabs 04/04/23 04/22/23 Rx 325 mg tablet ferrous gluconate 324 mg (37.5 mg 324 mg PO DAILY #30 tabs 04/14/23 04/22/23 Rx iron) tablet Patient History Medical History Amaurosis fugax, both eyes No recent issues Had work up with head/neck CTA, brain MRI- no significant issues Anemia Anxiety and depression Aortic stenosis Mild aortic stenosis with mild to moderate AR per 07/2022 ECHO Chronic low back pain Chronic narcotic use Controlled type 2 diabetes mellitus without complication diet controlled Degenerative disc disease Dyspnea on exertion Fibromyalgia GERD (gastroesophageal reflux disease) Well controlled and stable History of anesthesia reaction reports woke up feeling sob after ORIF LUE at [facility] [place] approx 2 years ago. "I felt like I couldn't breathe and it felt like my throat was closing." Denies need for re-intubation. History of syncope "drop attacks"- reason for loop recorder. follows with Dr. Mae. no recent issues Hypercholesterolemia Hyperkalemia Hyperparathyroidism following with endocrine- normacalcemic hyperparathyroidism - no surgery needed at this time Hypertension Implantable loop recorder present Lumbar stenosis with neurogenic claudication Migraines Osteoporosis Surgical History Difficult airway for intubation POSSIBLE -- H/O GLIDESCOPE INTUBATION 2012 [facility]. H/O cervical spine surgery NECK SPINE FUSION (CERV, BELOW C2). states ROM WNL. H/O gastric bypass History of appendectomy History of cardiac catheterization 11/2022 [facility] - no stents. History of cataract surgery History of cholecystectomy History of colonoscopy History of esophagogastroduodenoscopy (EGD) History of hysterectomy History of knee replacement Right History of lumbar surgery Fusion History of open reduction and internal fixation (ORIF) procedure LUE History of right shoulder replacement History of total shoulder replacement Left - with revision in February 2020 Status post panniculectomy Status post placement of implantable loop recorder 08/08/[address] [employer] @ [facility] Family History Father Lung cancer Grandmother Myocardial infarction Mother Myocardial infarction Pancreatic cancer Brother Myocardial infarction Other Family hx of colon cancer Denies family history of Ovarian cancer Prostate cancer Breast cancer Social History Smoking Status: Former smoker Smoking End Date: as a teen; Second Hand Exposure: Yes; Do You Dip or Chew Tobacco: No; Tobacco Cessation Education Requested by Patient: No Hx Alcohol Use: No Hx Substance Use: No Preferred Language: Vietnamese Communication Ability: Effective Toll Collector Required: No Beliefs That Will Affect Care: None marital status: Single Current Living Situation: Alone Current Living Situation Comment: [facility] current occupational status: retired Feels Safe at Home: Yes Safety Concerns: Feels Safe At This Time Seatbelt Use: always Assistive Devices: Cane and Walker Review of Systems Review of Systems: Constitutional-no fever or chills ENT-no blurred vision, no double vision, no epistaxis, no sore throat Respiratory-no cough, no wheezing, no shortness of breath Cardiac-no palpitations, no chest pain, no syncope GI-no nausea, vomiting, diarrhea, melena, hematochezia -no urinary retention, no urinary incontinence, no dysuria, no hematuria Musculoskeletal-postoperative lumbar discomfort as expected Skin-no bruising, no rashes, no pruritus Neuro-no isolated weakness, no paresthesia Psych-no depression, no anxiety Physical Exam Physical Exam: General-alert and oriented x3, no fevers, no chills HEENT-head atraumatic and normocephalic, pupils equal and reactive to light, extraocular muscles intact Neck-no lymphadenopathy or thyromegaly, trachea midline Chest-clear to auscultation percussion. No rales wheezing or rhonchi Cardiac-regular rate and rhythm, normal S1 and S2 Abdomen-normal bowel sounds, nontender, no hepatosplenomegaly Extremities-no cyanosis, clubbing, or edema. Limited range of motion and discom [place] lumbar spine area as expected Neuro-cranial nerves II through XII intact, motor and sensory function within normal limits, strength symmetrical , no focal deficits Psych-normal affect, normal mood Results & Data Results & Data Vital Signs (Past 12 Hours) Vital Signs Temp Pulse Pulse Resp BP BP Pulse Ox 04/23/23 10:01 76 139/83 04/23/23 08:52 85 103/70 04/23/23 07:33 36.2 C L 83 14 137/79 100 04/23/23 02:28 36.7 C 71 16 127/76 95 O2 Del Method O2 Flow Rate 04/23/23 10:01 04/23/23 08:52 04/23/23 07:33 Nasal Cannula 04/23/23 02:28 Nasal Cannula 2.0 Laboratory Results 04/23/23 07:13 04/23/23 07:13 PG Care Time/CCT Total # of Minutes Spent Total Time Spent with Patient: Total time spent is greater than 50% in coordination of care (as documented) at patient's floor/unit and/or counseling patient: Coding Level of Care Code 60657 IN/OBS CONSULT LVL 4,60M Diagnoses Neurogenic claudication due to lumbar spinal stenosis M48.062 Anemia D64.9 Type 2 diabetes mellitus E11.9 Hypercholesterolemia E78.00 Hypertension I10
[2023-04-23] MEDS: DOCUSATE SODIUM/SENNA 50/8.6MG TAB PO SCH (20:39)
[2023-04-23] MEDS: MIRTAZAPINE TAB 15 MG TAB PO SCH (20:40)
[2023-04-24] MEDS: RAMELTEON: ORDER AWAITING ACTION SCH ×4 (00:50→23:55)
[2023-04-24] MEDS: POLYETHYLENE (MIRALAX) 17 GM PACK PO SCH ×5 (00:50→23:55)
[2023-04-24] MEDS: oxyCODONE HCL IR 5 MG TAB (IMMEDIATE RELEASE) PO PRN ×3 (07:40→17:53)
[2023-04-24] MEDS: DULoxetine HCL 30 MG CAP PO SCH ×2 (07:41→21:14)
[2023-04-24] MEDS: FERROUS GLUCONATE 324 MG TAB PO SCH (07:41)
[2023-04-24] MEDS: PANTOprazole 40 MG TAB PO SCH (07:41)
[2023-04-24] MEDS: EZETIMIBE 10 MG TABLET PO SCH (07:41)
[2023-04-24] MEDS: DULoxetine HCL 60 MG CAP PO SCH ×2 (07:42→21:13)
[2023-04-24] MEDS: MULTIVITAMIN TAB PO SCH (07:42)
[2023-04-24] MEDS: VIBEGRON 75 MG TAB PO SCH (07:42)
[2023-04-24] MEDS: dexAMETHasone 6 MG in SYRINGE 0 ML IV SCH (07:42)
[2023-04-24] MEDS: ASPIRIN 81 MG ECTAB PO SCH (07:42)
[2023-04-24] MEDS: LOSARTAN POTASSIUM 25 MG TAB PO SCH (07:46)
[2023-04-24] MEDS: amLODIPine BESYLATE 5 MG TAB PO SCH (07:46)
[2023-04-24] MEDS: PROPRANOLOL HCL 60 MG LA CAP PO SCH (07:46)
[2023-04-24] MEDS: PREGABALIN 50 MG CAP PO SCH ×3 (07:52→21:12)
--- NOTE | 2023-04-24 08:24 | Orthopedic Progress Note ---
Date of Service April 24, 2023 Assessment & Plan (1) Neurogenic claudication due to lumbar spinal stenosis: Plan: At this time we will continue physical therapy monitor KAYLEY output and advance her bowel regiment anticipate discharge to rehab versus SNF tomorrow. Admission and Anticipated Discharge Date Admission Date: April 22, 2023 Subjective Back pain controlled leg pain improved Physical Exam Physical Exam: Patient is seen in the chair at the bedside. She is comfortable. Is constricted testing. Results & Data Vital Signs (Past 12 Hours) Vital Signs Temp Pulse Resp BP Pulse Ox O2 Del Method O2 Flow Rate 04/24/23 07:39 36.4 C L 61 22 139/55 L 96 Room Air 04/23/23 22:26 115/75 97 Nasal Cannula 2.0 04/23/23 22:06 36.6 C 86 16 94/60 L 93 Room Air
[2023-04-24] MEDS: traMADol HCL 50 MG TABLET PO PRN ×2 (11:24→21:12)
--- NOTE | 2023-04-24 12:59 | Hospitalist Progress Note ---
Date of Service April 24, 2023 Assessment & Plan (1) Neurogenic claudication due to lumbar spinal stenosis: Plan: Patient underwent repeat lumbar surgery yesterday, April 22. Postoperative day #2. Orthopedic management. Pain control measures (2) Anemia: Plan: Mild acute blood loss anemia postoperatively. Serial labs. No transfusion needed at this time (3) Type 2 diabetes mellitus: Plan: ADA diet. Sliding scale coverage. (4) Hypercholesterolemia: Plan: Stable. Continue Zetia therapy (5) Hypertension: Plan: Stable. Continue amlodipine, losartan, propranolol Plan Discharge arrangements per primary service. SNF placement pending Admission and Anticipated Discharge Date Admission Date: April 22, 2023 Subjective Alert and oriented. No distress. Postoperative day #2 after redo surgery of her lumbar spine. Blood pressure is acceptable. SNF placement pending Review of Systems Review of Systems: Constitutional-no fever or chills ENT-no blurred vision, no double vision, no epistaxis, no sore throat Respiratory-no cough, no wheezing, no shortness of breath Cardiac-no palpitations, no chest pain, no syncope GI-no nausea, vomiting, diarrhea, melena, hematochezia -no urinary retention, no urinary incontinence, no dysuria, no hematuria Musculoskeletal-postoperative lumbar discomfort as expected Skin-no bruising, no rashes, no pruritus Neuro-no isolated weakness, no paresthesia Psych-no depression, no anxiety Physical Exam Physical Exam: General-alert and oriented x3, no fevers, no chills HEENT-head atraumatic and normocephalic, pupils equal and reactive to light, extraocular muscles intact Neck-no lymphadenopathy or thyromegaly, trachea midline Chest-clear to auscultation percussion. No rales wheezing or rhonchi Cardiac-regular rate and rhythm, normal S1 and S2 Abdomen-normal bowel sounds, nontender, no hepatosplenomegaly Extremities-no cyanosis, clubbing, or edema. Limited range of motion and discom [place] lumbar spine area as expected Neuro-cranial nerves II through XII intact, motor and sensory function within normal limits, strength symmetrical , no focal deficits Psych-normal affect, normal mood Results & Data Results & Data Vital Signs (Past 12 Hours) Vital Signs Temp Pulse Resp BP Pulse Ox O2 Del Method 04/24/23 07:39 36.4 C L 61 22 139/55 L 96 Room Air Laboratory Results 04/23/23 07:13 04/23/23 07:13 PG Care Time/CCT Total # of Minutes Spent Total Time Spent with Patient: Total time spent is greater than 50% in coordination of care (as documented) at patient's floor/unit and/or counseling patient: Coding Level of Care Code 07058 SUB INP/OBS CARE 2/35MIN Diagnoses Neurogenic claudication due to lumbar spinal stenosis M48.062 Anemia D64.9 Type 2 diabetes mellitus E11.9 Hypercholesterolemia E78.00 Hypertension I10
[2023-04-24] MEDS: DOCUSATE SODIUM/SENNA 50/8.6MG TAB PO SCH (21:12)
[2023-04-24] MEDS: MIRTAZAPINE TAB 15 MG TAB PO SCH (21:13)
[2023-04-25] MEDS: oxyCODONE HCL IR 5 MG TAB (IMMEDIATE RELEASE) PO PRN ×4 (00:06→15:31)
[2023-04-25] MEDS: POLYETHYLENE (MIRALAX) 17 GM PACK PO SCH ×2 (05:52→12:11)
[2023-04-25] MEDS: RAMELTEON: ORDER AWAITING ACTION SCH ×2 (08:02→13:11)
[2023-04-25] MEDS: PREGABALIN 50 MG CAP PO SCH ×2 (08:03→13:11)
[2023-04-25] MEDS: traMADol HCL 50 MG TABLET PO PRN (08:03)
[2023-04-25] MEDS: PROPRANOLOL HCL 60 MG LA CAP PO SCH (08:04)
[2023-04-25] MEDS: amLODIPine BESYLATE 5 MG TAB PO SCH (08:06)
[2023-04-25] MEDS: VIBEGRON 75 MG TAB PO SCH (08:06)
[2023-04-25] MEDS: DULoxetine HCL 30 MG CAP PO SCH (08:06)
[2023-04-25] MEDS: FERROUS GLUCONATE 324 MG TAB PO SCH (08:06)
[2023-04-25] MEDS: ASPIRIN 81 MG ECTAB PO SCH (08:06)
[2023-04-25] MEDS: dexAMETHasone 6 MG in SYRINGE 0 ML IV SCH (08:07)
[2023-04-25] MEDS: EZETIMIBE 10 MG TABLET PO SCH (08:07)
[2023-04-25] MEDS: MULTIVITAMIN TAB PO SCH (08:07)
[2023-04-25] MEDS: DULoxetine HCL 60 MG CAP PO SCH (08:07)
[2023-04-25] MEDS: LOSARTAN POTASSIUM 25 MG TAB PO SCH (08:07)
[2023-04-25] MEDS: PANTOprazole 40 MG TAB PO SCH (08:08)
--- NOTE | 2023-04-25 09:33 | Orthopedic Progress Note ---
Date of Service April 25, 2023 Assessment & Plan (1) Neurogenic claudication due to lumbar spinal stenosis: Plan: This time continue physical therapy we will plan for discharge to SNF if bed available today. Drain can be removed dressing change prior to discharge. Admission and Anticipated Discharge Date Admission Date: April 22, 2023 Subjective Back pain controlled leg pain improved Physical Exam Physical Exam: Patient is comfortable. She is constricted testing. Results & Data Vital Signs (Past 12 Hours) Vital Signs Temp Pulse Resp BP Pulse Ox O2 Del Method 04/25/23 07:48 36.6 C 65 16 116/78 100 Room Air 04/24/23 22:25 36.4 C L 64 16 124/81 94 Room Air Queries Orthopedic Spine Obesity: Yes
[2023-04-25 10:15] LABS: Basophils # (auto) 0.02 K/uL (0-0.2); Basophils % (auto) 0.3 %; Eosinophils # (auto) 0.12 K/uL (0-0.50); Eosinophils % (auto) 1.8 %; Hematocrit (blood only) 27.7 % (37.0-47.0); Hemoglobin 8.9 g/dl (12.0-16.0); Immature Granulocytes # (auto) 0.05 K/uL (0.01-0.20); Immature Granulocytes % (auto) 0.8 %; Lymphocytes # (auto) 0.93 K/uL (1.2-3.4); Mean Corpuscular Hemoglobin 29.8 pg (25.0-34.0); Mean Corpuscular Hgb Conc 32.1 g/dL (32.0-36.0); Mean Corpuscular Volume 92.6 fL (80.0-100.0); Mean Platelet Volume 10.4 fL (9.4-12.4); Monocytes # (auto) 0.62 K/uL (0.11-0.59); Monocytes % (auto) 9.3 %; Neutrophils % (auto) 73.8 %; Platelet Count 306 K/uL (130-400); RDW Coefficient of Variation 14.6 % (11.5-14.5); RDW Standard Deviation 49.7 fL (36.4-46.3); Red Blood Count 2.99 M/uL (4.20-5.40); White Blood Count 6.64 K/ul (4.8-10.8)
--- NOTE | 2023-04-25 10:20 | Hospitalist Progress Note ---
Date of Service April 25, 2023 Assessment & Plan (1) Neurogenic claudication due to lumbar spinal stenosis: Plan: Patient underwent repeat lumbar surgery on April 22. Postoperative day #3. Orthopedic management. Pain control measures (2) Anemia: Plan: Mild acute blood loss anemia postoperatively. Serial labs. No transfusion needed at this time. Iron replacement increased to twice daily dosing (3) Type 2 diabetes mellitus: Plan: ADA diet. Sliding scale coverage. (4) Hypercholesterolemia: Plan: Stable. Continue Zetia therapy (5) Hypertension: Plan: Stable. Continue amlodipine, losartan, propranolol Plan Possible discharge to SNF later today, April 25. She is medically stable Admission and Anticipated Discharge Date Admission Date: April 22, 2023 Subjective Alert and oriented. Hemoglobin is slightly low at 8.9. Iron replacement increased to twice daily dosing. Postoperative day #3. Possible discharge to SNF later today if arrangements are finalized Review of Systems Review of Systems: Constitutional-no fever or chills ENT-no blurred vision, no double vision, no epistaxis, no sore throat Respiratory-no cough, no wheezing, no shortness of breath Cardiac-no palpitations, no chest pain, no syncope GI-no nausea, vomiting, diarrhea, melena, hematochezia -no urinary retention, no urinary incontinence, no dysuria, no hematuria Musculoskeletal-postoperative lumbar discomfort as expected Skin-no bruising, no rashes, no pruritus Neuro-no isolated weakness, no paresthesia Psych-no depression, no anxiety Physical Exam Physical Exam: General-alert and oriented x3, no fevers, no chills HEENT-head atraumatic and normocephalic, pupils equal and reactive to light, extraocular muscles intact Neck-no lymphadenopathy or thyromegaly, trachea midline Chest-clear to auscultation percussion. No rales wheezing or rhonchi Cardiac-regular rate and rhythm, normal S1 and S2 Abdomen-normal bowel sounds, nontender, no hepatosplenomegaly Extremities-no cyanosis, clubbing, or edema. Limited range of motion and discomfort lumbar spine area as expected Neuro-cranial nerves II through XII intact, motor and sensory function within normal limits, strength symmetrical , no focal deficits Psych-normal affect, normal mood Results & Data Results & Data Vital Signs (Past 12 Hours) Vital Signs Temp Pulse Resp BP Pulse Ox O2 Del Method 04/25/23 07:48 36.6 C 65 16 116/78 100 Room Air 04/24/23 22:25 36.4 C L 64 16 124/81 94 Room Air Laboratory Results 04/25/23 09:49 PG Care Time/CCT Total # of Minutes Spent Total Time Spent with Patient: Total time spent is greater than 50% in coordination of care (as documented) at patient's floor/unit and/or counseling patient: Coding Level of Care Code 52523 SUB INP/OBS CARE 2/35MIN Diagnoses Neurogenic claudication due to lumbar spinal stenosis M48.062 Anemia D64.9 Type 2 diabetes mellitus E11.9 Hypercholesterolemia E78.00 Hypertension I10
[2023-04-25 10:31] LABS: BUN Creatinine Ratio 26.3 (10-20); Calcium 8.3 mg/dl (8.6-10.3); Creatinine Clr Calc Pharmacy 58.5 ml/min; Est GFR (Non-African American) 56.9 ml/min; Potassium 4.7 mmol/L (3.5-5.1)
[2023-04-25] MEDS ORDERED: FERROUS GLUCONATE 324 MG TAB PO SCH (21:00)
== END 2023-04-25 15:46 | DRG 454 ==
LOC: ASU 06:06 → 3E 10:23